=== PATIENT | male | born 1980 | race Caucasian/White ===

== ENCOUNTER 2022-04-20 11:12 | Emergency (ER) | payer OTHER, SELFPAY ==
[2022-04-20 11:42] VITALS: BP 157/89; PULSE 77; RESP 16; TEMP 36.3; O2SAT 100; BMI 36.3
--- NOTE | 2022-04-20 11:44 | ECG_ITS ---
Test Reason : electrocuted Blood Pressure : / mmHG Vent. Rate : 074 BPM Atrial Rate : 074 BPM P-R Int : 182 ms QRS Dur : 080 ms QT Int : 372 ms P-R-T Axes : 030 -18 012 degrees QTc Int : 412 ms Normal sinus rhythm Possible Anterior infarct , age undetermined Abnormal ECG When compared with ECG of 23-JUN-2004 07:00, No significant change was found Referred By: Generic ED Physician Electronically Signed By:MICHAEL ZAMORA
--- NOTE | 2022-04-20 12:13 | ED.GENADULT ---
HPI - General Adult General Chief complaint: General Medical Stated complaint: electrocuted, L hand pain/work inj Time Seen by Provider: 04/20/22 12:08 Source: patient Mode of arrival: ambulatory Limitations: no limitations History of Present Illness HPI narrative: Patient comes to the emergency room after being shocked while changing a light bulb. Patient states that he was working for [employer], changing a light bulb in a signed. Patient states that it hurt quite a bit, the shock traveled from his left hand to the left shoulder. Denies any burn injuries. Denies any loss of consciousness, no chest pain or shortness of breath. At this time, he feels that his 4th and 5th fingers at a bit tingly, no pain. Related Data Home Medications Medication Instructions Recorded Confirmed atorvastatin 20 mg tablet 20 mg PO DAILY 09/24/21 metformin 1,000 mg tablet 1,000 mg PO BID 09/24/21 Previous Rx's Medication Instructions Recorded amoxicillin 500 mg-potassium 1 tab PO BID #14 tabs 09/24/21 clavulanate 125 mg tablet (Augmentin) Allergies Allergy/AdvReac Type Severity Reaction Status Date / Time No Known Allergies Allergy Verified 04/20/22 11:42 Review of Systems Review of Systems: Constitutional : No Weight loss, No Fever, No Chills, No Night Sweats, No Fatigue, No Malaise ENT/Mouth : No Hearing loss, No Ear Pain, No Nasal Congestion, No Sinus Pain, No Hoarseness, No sore throat, No Rhinorrhea, No Swallowing Difficulty Eyes: No Eye Pain, No Swelling, No Redness, No Foreign Body, No Discharge, No Vision Changes Cardiovascular : No Chest Pain, No SOB, No Dyspnea on Exertion, No Orthopnea, No Edema, No Palpitations Respiratory : No Cough, No Sputum, No Wheezing, No Smoke Exposure, No Dyspnea Gastrointestinal : No Nausea, No Vomiting, No Diarrhea, No Constipation, No abdominal Pain, No Hematochezia, No Melena Genitourinary : no irregular bleeding, No Dysuria, No Urinary Frequency, No Hematuria, No Urinary Incontinence, No Urgency, No Flank Pain, No Urinary Flow Changes, No Hesitancy Musculoskeletal : Complaining of 4th and 5th finger tingling after being shocked by an electrical wire. No joint pain, No Myalgias, No Joint Swelling Skin : No Skin Lesions, No rash Neuro : No Weakness, No Numbness, No Paresthesias, No Loss of Consciousness, No Dizziness, No Headache Psych : No Anxiety/Panic, No Depression, No SI/HI/AH/VH, No Social Issues, Heme/Lymph: No Bruising, No Bleeding,No Lymphadenopathy Endocrine : No Polyuria, No Polydipsia, No Temperature Intolerance ON LICENSE OF [facility] Past Medical History Medical History Hypertension Social History Social History Patient Tobacco Use Status: Former Tobacco user Advance Directives: No Advance Directives Information Provided: Yes Physical Exam ED Vital Signs: Vital Signs - 24 hr 04/20/22 11:42 Temperature 97.4 F Pulse Rate 77 Respiratory Rate 16 Blood Pressure 157/89 H Pulse Oximetry 100 Oxygen Delivery Method Room Air BMI result Body Mass Index 36.3 Const Other: Appearance: Alert. Oriented X3. No acute distress. Well appearing Eyes: Pupils equal, round and reactive to light. ENT: Pharynx normal. Neck: Normal inspection. Neck supple. No lymph nodes noted. No crepitus CVS: Normal heart rate and rhythm. Pulses normal. Normal S1 and S2 Respiratory: No respiratory distress. Breath sounds normal. No Wheezing. No rales Abdomen: Soft and nontender. No rigidity. No distention. Skin: Skin warm and dry. Normal skin color. Normal skin turgor. Old scabs in the dorsum of the left hand. No burn [place] in the hand, no entry or exit wound Extremities: No lower extremity edema. No Lacerations. No Rash. Patient is able to flex and extend all fingers in both hands, strength 5/5 bilaterally, normal range of motion in both arms Neuro: Oriented X 3. No motor deficit. No sensory deficit. Moving all extremities. No slurred speech. CN 2 through 12 grossly intact Psych: calm, cooperative, normal affect Course Course Course Narrative: Patient's EKG is within normal limits. Troponin, CPK and other labs pending. At this time, other than the tingling in the 4th and 5th fingers of the left hand, patient has no other complaints. EKG within normal limits, CPK 647, creatinine 0.88. CPK elevation likely secondary from the shock. Not causing any renal dysfunction. Troponin negative. Patient has no chest pain, no shortness of breath. Patient ready for discharge. Medical Decision Making Lab Data Result diagrams: 04/20/22 12:52 04/20/22 12:52 Labs: Lab Results 04/20/22 04/20/22 04/20/22 Range/Units 12:52 12:52 12:52 WBC 7.0 (4.8-10.8) X10*3/uL RBC 3.95 L (4.60-5.80) X10*6/uL Hgb 13.0 L (14.0-18.0) g/dl Hct 38.0 L (42.0-52.0) % MCV 96.2 (80.0-98.0) fL MCH 32.9 (27.0-33.0) pg MCHC 34.2 (31.0-36.0) g/dl RDW 12.1 (11.0-16.0) % Plt Count 272 (160-400) X10*3/uL MPV 9.7 (9.4-12.4) fL Immature Gran % (Auto) 0.9 H (0.0-0.4) % Neut % (Auto) 54.5 (45-73) % Lymph % (Auto) 31.8 (20-40) % Terry % (Auto) 8.6 (2-11) % Eos % (Auto) 3.3 (0-4) % Baso % (Auto) 0.9 (0-2) % Lymph # (Auto) 2.2 (1.2-4.9) X10*3/uL Terry # (Auto) 0.6 (0.1-1.2) X10*3/uL Eos # (Auto) 0.2 (0.0-0.4) X10*3/uL Baso # (Auto) 0.1 (0.0-0.2) X10*3/uL Abs Immat Gran (auto) 0.06 H (0.00-0.03) X10*3/uL Absolute Neuts (auto) 3.8 (2.0-8.3) x10*3/uL Absolute Nucleated RBC 0.000 (0.0-0.012) X10*3/uL Nucleated RBC % (auto) 0.0 (0.0-0.2) /100WBC Sodium 137 (135-145) mmol/L Potassium 4.8 (3.3-5.1) mmol/L Chloride 101 (96-108) mmol/L Carbon Dioxide 24 (22-29) mmol/L Anion Gap 17 (12-20) BUN 8 L (9-16) mg/dL Creatinine 0.88 (0.5-1.4) mg/dL Estim Creat Clear Calc 122.3 Estimated GFR > 60 Random Glucose 132 H (60-115) mg/dL Calcium 9.4 (8.4-10.2) mg/dL Total Creatine Kinase 647 H (38-174) U/L Troponin I High Sens < 3.5 (<3.5-35.0) ng/L ECG Data Attestation: I personally reviewed and interpreted this ECG as follows: (Sinus rhythm, heart rate 74, no ST segment depressions or elevations, no T-wave inversions, QTC 412) Discharge Plan Discharge Clinical Impression: Electric shock Patient Disposition: Home, Self-Care Instructions: Electrical Zamudio in Adults (ED) Additional Instructions: Please follow-up with your primary care physician tomorrow. If you have any worsening or new symptoms, please return to the emergency room or call 911 Prescriptions: No Action metformin 1,000 mg tablet 1,000 mg PO BID atorvastatin 20 mg tablet 20 mg PO DAILY amoxicillin-pot clavulanate [Augmentin] 500-125 mg tablet 1 tab PO BID Qty: 14 0RF
[2022-04-20 13:02] LABS: MANUAL DIFF FLAG NO
[2022-04-20 13:04] LABS: Basophils Absolute Auto 0.1 X10*3/uL (0.0-0.2); Basophils Percent Auto 0.9 % (0-2); Eosinophils Absolute Auto 0.2 X10*3/uL (0.0-0.4); Eosinophils Percent Auto 3.3 % (0-4); Imm Gran Abs Auto 0.06 X10*3/uL (0.00-0.03); Imm Gran Pct Auto 0.9 % (0.0-0.4); Lymphocytes Absolute Auto 2.2 X10*3/uL (1.2-4.9); Lymphocytes Percent Auto 31.8 % (20-40); Mean Corpuscular HGB Conc 34.2 g/dl (31.0-36.0); Mean Corpuscular Hemoglobin 32.9 pg (27.0-33.0); Mean Corpuscular Volume 96.2 fL (80.0-98.0); Mean Platelet Volume 9.7 fL (9.4-12.4); Monocytes Absolute Auto 0.6 X10*3/uL (0.1-1.2); Monocytes Percent Auto 8.6 % (2-11); Neutrophils Absolute Auto 3.8 x10*3/uL (2.0-8.3); Neutrophils Percent Auto 54.5 % (45-73); Platelet Count 272 X10*3/uL (160-400); Red Blood Count 3.95 X10*6/uL (4.60-5.80); Red Cell Distribution Width 12.1 % (11.0-16.0)
[2022-04-20 13:19] LABS: Anion Gap 17 (12-20); Blood Urea Nitrogen 8 mg/dL (9-16); Calcium 9.4 mg/dL (8.4-10.2); Carbon Dioxide 24 mmol/L (22-29); Chloride 101 mmol/L (96-108); Creatinine Clr Calc Pharmacy 122.3; Estimated Glomerular Filt Rate > 60; Glucose Random 132 mg/dL (60-115); Potassium 4.8 mmol/L (3.3-5.1); Sodium 137 mmol/L (135-145)
[2022-04-20 13:27] LABS: Troponin-I High Sensitivity < 3.5 ng/L (<3.5-35.0)
--- NOTE | 2022-04-20 18:42 | PC.NURSE ---
LATE ENTRY 1400 PT AWAKE, ALERT AND ORIENTED X 3. SKIN WARM AND DRY. RESP UNLABORED. DENIES N/V. DENIES CP/SOB. PT SITTING UP ON STRETCHER. NO COMPLAINTS. NO ACUTE DISTRESS NOTED.
== END 2022-04-20 14:15 | disposition home or self-care (01) ==
PROVIDERS: Emergency Provider Emergency Medicine
DX: T75.4XXA Electrocution, initial encounter (principal); W86.8XXA Exposure to other electric current, initial encounter; Y93.89 Activity, other specified; Y92.213 High school as the place of occurrence of the external cause; Y99.0 Civilian activity done for income or pay
CPT/HCPCS: 36415; 80048; 82550; 84484; 85025; 93005; 99283

== ENCOUNTER 2023-09-06 08:08 | Outpatient (AMB) | payer OTHER, SELFPAY ==
[2023-09-06 08:15] VITALS: BP 130/80; PULSE 95; TEMP 37.1; O2SAT 98; BMI 35.5
--- NOTE | 2023-09-06 08:15 | MHC.OFFWIV ---
Intake Vital Signs 09/06/23 08:15 Height 5 ft 6 in Weight 220 lb BMI 35.5 BP 130/80 Blood Pressure Location Rt brachial Position Sitting Pulse 95 Pulse Source Pulse Oximeter Temp 98.8 F Temp Source Oral Pulse Oximetry (%) 98 Oxygen Delivery Method Room Air Intake Visit Reasons: EP strep throat pain from child Intake Note: pt is here for c/o possible strep, pts child was positive for strep and patient has sore throat Patient Tobacco Use Status: Former Tobacco user Allergies No Known Allergies Allergy (Verified 09/06/23 08:27) Medication List - Last Reconciled 09/06/23 by Ricky Be MD atorvastatin 20 mg PO DAILY diazepam 5 mg PO DAILY PRN diclofenac sodium 75 mg PO BID glipizide 5 mg PO DAILY lancets (FreeStyle Lancets) As directed lisinopril 10 mg PO DAILY metformin 1,000 mg PO BID methocarbamol 750 mg PO TID Do you need a note to return to daycare/school/sports/work: Yes HPI EP strep throat pain from child HPI Details Patient presents for a sick visit. Reporting symptoms of sinus congestion, sore throat and difficulty swallowing. Low-grade fever. 6-year-old daughter was recently diagnosed with strep. She is currently on amoxicillin. [facility] Medical History Hypertension Social History Patient Tobacco Use Status: Former Tobacco user Physical Exam Vital Signs: Last Vital Signs Temp 98.8 F 09/06/23 08:15 Pulse 95 09/06/23 08:15 BP 130/80 09/06/23 08:15 Pulse Ox 98 09/06/23 08:15 Oxygen Delivery Method Room Air 09/06/23 08:15 BMI result Body Mass Index 35.5 Const General: cooperative and healthy appearing Nutritional Appearance: well nourished Orientation/consciousness: patient oriented x3 Limitations: no limitations HEENT Head: Yes normal to inspection Eyes General: appearance normal, both eyes and all related structures Neck Neck: Yes normal visual inspection Chest Chest palpation & inspection: normal palpation of entire chest wall Resp Effort & Inspection: normal respiratory effort Neuro General: patient oriented x3 Assessment & Plan Assessment & Plan (1) Upper respiratory tract infection: Code(s): J06.9 - Acute upper respiratory infection, unspecified Plan: Antibiotics ordered. Increase fluid intake. Tylenol for aches and pains. If symptoms worsen, follow-up here for a recheck. Coding Level of Care Code Est Pt Level 3 (61804) Diagnoses Upper respiratory tract infection J06.9
== END 2023-09-06 08:28 | disposition home or self-care (01) ==
PROVIDERS: PCP Internal Medicine; Visit Provider Internal Medicine
DX: J06.9 Acute upper respiratory infection, unspecified (principal); J02.9 Acute pharyngitis, unspecified
CPT/HCPCS: 87880; 99213

== ENCOUNTER 2023-12-19 12:42 | Outpatient (AMB) | payer OTHER, SELFPAY ==
[2023-12-19 12:45] VITALS: BP 130/90; PULSE 86; TEMP 36.2; O2SAT 96; BMI 37.3
--- NOTE | 2023-12-19 12:45 | AM.OFFWIN_ITS ---
Intake Vital Signs 12/19/23 12:45 Height 5 ft 6 in Weight 231 lb BMI 37.3 BP 130/90 H Blood Pressure Location Lt brachial Position Sitting Pulse 86 Pulse Source Pulse Oximeter Temp 97.1 F Temp Source Temporal Artery Scan Pulse Oximetry (%) 96 Oxygen Delivery Method Room Air Intake Visit Reasons: EST/sore throat, right ear pain (lobby masked) Intake Note: pt is here today for sore throat rt ear pain started 1 week ago Patient Tobacco Use Status: Former Tobacco user Allergies No Known Allergies Allergy (Verified 12/19/23 12:48) Do you need a note to return to daycare/school/sports/work: Yes HPI HPI Comments History of Present Illness Details 43-year-old male presents today complain ing of sore throat does not last 3 or 4 days. States his kids have had 2 episodes of strep 1 last week in 1 2 weeks ago. Patient denies any other symptoms of cough shortness of breath chest pain congestion PFSH Medical History Hypertension Social History Patient Tobacco Use Status: Former Tobacco user Review of Systems Const All systems reviewed & are unremarkable except as noted in HPI and below Physical Exam Vital Signs: Last Vital Signs Temp 97.1 F 12/19/23 12:45 Pulse 86 12/19/23 12:45 BP 130/90 H 12/19/23 12:45 Pulse Ox 96 12/19/23 12:45 Oxygen Delivery Method Room Air 12/19/23 12:45 BMI result Body Mass Index 37.3 HEENT Head: Yes normal to inspection, Yes normocephalic and Yes atraumatic Ears: hearing grossly normal bilaterally, TM's normal bilaterally and EAC's normal General nose exam: Normal external nose present Face and sinus: Yes normal facial exam Throat: Yes posterior oropharynx abnormal (Erythema) Resp Effort & Inspection: normal respiratory effort Auscultation: clear to auscultation bilaterally Cardio Rate: regular rate Rhythm: regular rhythm Results AMB Rapid Strep AMB Rapid Strep Negative Last Edit by Tyshawn Noriega MA on 12/19/23 12:56 Results Reviewed Results Reviewed: Laboratory Last Values Strep Scn [facility] Negative 12/19/23 12:56 Although his rapid strep was negative his exudative pharyngitis needs to be treated Assessment & Plan Assessment & Plan (1) Exudative pharyngitis: Code(s): J02.9 - Acute pharyngitis, unspecified Plan: Antibiotics been ordered and the patient was given a note for work Plan See plan Medications: New amoxicillin-pot clavulanate 500-125 mg (Augmentin) 1 tab PO BID 10 days 20 tabs 0RF Coding Level of Care Code Est Pt Level 3 (20815) Diagnoses Exudative pharyngitis J02.9
== END 2023-12-19 13:31 | disposition home or self-care (01) ==
PROVIDERS: PCP Nurse Practitioner Family; Visit Provider Physician Assistant Medical
DX: J02.9 Acute pharyngitis, unspecified (principal)
CPT/HCPCS: 87880; 99213

== ENCOUNTER 2024-03-29 10:28 | Outpatient (AMB) | payer OTHER, SELFPAY ==
--- NOTE | 2024-03-29 10:30 | MHC.OFFWIV ---
Intake Vital Signs 03/29/24 10:32 Height 5 ft 6 in Weight 228 lb BMI 36.8 BP 152/96 H Blood Pressure Location Lt brachial Position Sitting Pulse 77 Pulse Source Pulse Oximeter Temp 98.0 F Temp Source Oral Pulse Oximetry (%) 98 Oxygen Delivery Method Room Air Intake Visit Reasons: EP- Bloody stool, abdomen soreness Intake Note: pt c/o abdominal pain and blood in stool since Monday. BP elevated. Has not had meds in 2 days Patient Tobacco Use Status: Former Tobacco user Allergies No Known Allergies Allergy (Verified 03/29/24 10:31) Do you need a note to return to daycare/school/sports/work: No HPI EP- Bloody stool, abdomen soreness HPI Details This is a 43 year old male patient who presents to the [place] clinic today with report of blood in stool since this past Monday. He states he noticed some red blood in stool several days ago, and it has lessened over the last few days. He also reports some mild upper right/mid abdominal pain which started today. He has had some gallbladder flares in the past and there has been consideration for cholecystectomy, however this has not been done. He denies any rectal pain, lower abdominal pain, fever, chills, weakness, vomiting. Denies urinary symptoms. Reports some soft stool. No constipation. Has appt. to establish care with new PCP Hai Mora on 04/25. BP somewhat elevated today - patient reports he refilled BP meds today after being off of them for two days. [facility] Medical History Hypertension Social History Patient Tobacco Use Status: Former Tobacco user Review of Systems Const All systems reviewed & are unremarkable except as noted in HPI and below Physical Exam Vital Signs: Last Vital Signs Temp 98.0 F 03/29/24 10:32 Pulse 77 03/29/24 10:32 BP 152/96 H 03/29/24 10:32 Pulse Ox 98 03/29/24 10:32 Oxygen Delivery Method Room Air 03/29/24 10:32 BMI result Body Mass Index 36.8 Const General: cooperative, healthy appearing, comfortable and no acute distress Nutritional Appearance: overweight Limitations: no limitations HEENT Head: Yes normal to inspection Ears: hearing grossly normal bilaterally Resp Effort & Inspection: normal respiratory effort Auscultation: clear to auscultation bilaterally GI Inspection: Yes normal to inspection Palpation (GI): Soft to palpation, Tenderness to palpation present (GI) in the epigastrum (mild ttp right/mid epigastric, no rebound tenderness, no guarding) and No hepatosplenomegaly present Percussion: Yes normal to percussion Auscultation: Hypoactive bowel sounds present General: Yes no CVA tenderness Back/Spine/Pelvis Back: no CVA tenderness Skin General skin exam: no rashes or lesions noted Extrem General: Yes capillary refill normal and Yes no clubbing, cyanosis or edema Psych Appearance: grossly normal Mental Status: mental status grossly normal Speech and movement: Normal speech and movement present Assessment & Plan Assessment & Plan (1) Epigastric abdominal tenderness: Code(s): R10.816 - Epigastric abdominal tenderness Qualifiers: Presence of rebound: absent Qualified Code(s): R10.816 - Epigastric abdominal tenderness Plan: Patient has mild right upper epigastric tenderness on palpation. He has had some gallbladder issues in the past for which he has seen GI while at [place]. There was consideration of cholecystectomy however patient never ended up having this done. No nausea, vomiting, fever. He has been eating a healthy diet - no recent greasy/fatty foods. He has also noticed some red blood in his stool since Monday (5 days). No lower abdominal or rectal pain. He could possibly have internal hemorrhoids. I discussed possible management/workup of symptoms with patient. He does not want ED eval for imaging/workup and would like to hold off on any labs at this time. We discussed red flags for which he should not delay care, including development of fever, chills, weakness/fatigue, dizziness, increase in blood in stool or abdominal pain, vomiting. He states that he will go to ED for any concerning symptoms, and will return to [place] next week if he does not improve with time. He has appt. to establish care with PCP Hai Mora next month. He may need GI referral if any of this is ongoing. All questions were answered and patient agrees. (2) Bloody stool: Code(s): K92.1 - Melena Plan: As above Coding Level of Care Code Est Pt Level 4 (42857) Diagnoses Epigastric abdominal tenderness without rebound tenderness R10.816 Presence of rebound: absent Bloody stool K92.1
[2024-03-29 10:32] VITALS: BP 152/96; PULSE 77; TEMP 36.7; O2SAT 98; BMI 36.8
== END 2024-03-29 11:20 | disposition home or self-care (01) ==
PROVIDERS: PCP Internal Medicine; Visit Provider Nurse Practitioner Family
DX: R10.816 Epigastric abdominal tenderness (principal); K92.1 Melena
CPT/HCPCS: 99214

== ENCOUNTER 2024-04-01 12:18 | Outpatient (REF) | payer OTHER, SELFPAY ==
[2024-04-01 13:23] VITALS: BP 183/118; PULSE 63; RESP 16; TEMP 37; O2SAT 98
== END 2024-04-01 12:19 | disposition home or self-care (01) ==
LOC: HO.MS 12:18
PROVIDERS: PCP Internal Medicine; Visit Provider Ophthalmology
PROC: (CPT 66821; principal; 2024-04-01 13:30)
DX: H26.491 Other secondary cataract, right eye (principal)
CPT/HCPCS: 66821

== ENCOUNTER 2024-04-22 12:36 | Outpatient (REF) | payer OTHER, SELFPAY ==
[2024-04-22 14:24] VITALS: BP 149/90; PULSE 79; RESP 16; TEMP 36.6; O2SAT 98; BMI 36.5
== END 2024-04-22 12:37 | disposition home or self-care (01) ==
LOC: HO.MS 12:36
PROVIDERS: PCP Internal Medicine; Visit Provider Ophthalmology
PROC: (CPT 66821; principal; 2024-04-22 15:10)
DX: H26.492 Other secondary cataract, left eye (principal)
CPT/HCPCS: 66821

== ENCOUNTER 2024-04-25 14:35 | Outpatient (AMB) | payer OTHER, SELFPAY ==
[2024-04-25 14:36] VITALS: BP 140/90; PULSE 82; O2SAT 98; BMI 37.3
--- NOTE | 2024-04-25 14:36 | MHC.PC.OV ---
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 Accompanied by: Self / Same As Patient Allergies No Known Allergies Allergy (Verified 04/25/24 16:41) Medication List - Last Reconciled 04/25/24 by BECK Aparicio atorvastatin 20 mg PO DAILY diazepam 5 mg PO DAILY PRN diclofenac sodium 75 mg PO BID glipizide 5 mg PO DAILY lancets (FreeStyle Lancets) As directed lisinopril 10 mg PO DAILY metformin 1,000 mg PO DAILY metformin 500 mg PO BEDTIME Tobacco use date assessed: 04/25/24 Dental Screening Dental Screen Date: 04/25/24 Did you have a dental visit in the last 12 months?: Yes Did you have a dental problem in the last 6 months where you did not have access to dental care?: No Was dental information given to patient?: Patient has dentist 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 Due for colon screen, will refer to GI. Pt is a diabetic, on an SAL and a statin. Pt reports that his last A1C was 6.7 on 02/05. Due for microalbumin, will order. Denies polyuria, polydipsia, and neuropathy. Pt denies any signs and symptoms of hypoglycemia and does know how to correct it. Pt reports that metformin causes GI distress. Will decrease this from 1000mg in the morning and 500mg at night to 500mg bid. Will start jardiance 10mg. Pt will contact me in 1-1.5 months with how he is doing on this med. May consider decreasing more, and increasing jardiance PFSH Medical History Hypertension Surgical History H/O elbow surgery S/P ACL repair History of surgery on lower extremity Hx of eye surgery Family History Father No problems noted. Mother No problems noted. Social History Housing: House Alcohol intake: current Alcohol intake frequency: 3 or more drinks per day Alcohol type: beer Patient Tobacco Use Status: Former Tobacco user e-Cigarette/Vaping Use: Never Used service: No Current occupational status: employed Current occupation: [employer] Current occupational exposures/hazards: No Cognitive needs: No Hearing needs: No Vision needs: Yes Questionnaire PHQ-9 Over the last 2 weeks, how often have you been bothered by any of the following problems? 1. Little interest or pleasure in doing things: not at all 2. Feeling down, depressed, or hopeless: not at all 3. Trouble falling or staying asleep, or sleeping too much: not at all 4. Feeling tired or having little energy: not at all 5. Poor appetite or overeating: not at all 6. Feeling bad about yourself - or that you are a failure or have let yourself or your family down: not at all 7. Trouble concentrating on things, such as reading the newspaper or watching television: not at all 8. Moving or speaking so slowly that other people could have noticed. Or the opposite - being so fidgety or restless that you have been moving around a lot more than usual: not at all 9. Thoughts that you would be better off or of hurting yourself in some way: not at all Total score: 0 Depression Screening Interpretation: Negative Depression Screening Done: Yes 83205 - PHQ-9 Billing: Yes Source: Developed by Drs. Zeb Scott, Nikole Hope, Kin Pressley and colleagues, with an educational elsie from [employer]. Thrive Questionnaire Date Thrive assessed: 04/25/24 I am a: Patient What is your living situation today?: I have a steady place to live Within the past 12 months, did the food you bought not last and you didn't have the money to get more?: Never true Within the past 12 months, did you worry whether your food would run out before you got money to buy more?: Never true Do you have trouble paying for medicines?: No Do you have trouble getting transportation to medical appointments?: No Do you have trouble paying your heating and electricity bill?: No Do you have trouble taking care of your child, family member or friend?: No Do you have trouble with day-to-day activities such as bathing, preparing meals, shopping, managing finances, etc.?: No Are you currently unemployed and looking for a job?: No Are you interested in more education?: No Please select the resources that you would like help with: None Currently or been in a relationship where the following occur: No concerns reported THRIVE Score: 0 AUDIT C Alcohol Use Questionnaire (AUDIT-C) 1. How often do you have a drink containing alcohol?: 4 or more times a week 2. How many drinks containing alcohol do you have on a typical day when you are drinking?: 3 or 4 3. How often do you have six or more drinks on one occasion?: Daily or almost daily Total Score: 9 Score Reviewed/Action Taken: Yes DIDIER-7 AMB Questionnaire DIDIER-7 Date DIDIER - 7 assessed: 04/25/24 Feeling nervous, anxious, or on edge: 0 = Not at all Not being able to stop or control worryin = Not at all Worrying too much about different things: 0 = Not at all Trouble relaxin = Not at all Being so restless that it is hard to sit still: 0 = Not at all Becoming easily annoyed or irritable: 0 = Not at all Feeling afraid as if something awful might happen: 0 = Not at all Total DIDIER-7 score (0-4 normal; 5-9 mild; 10-14 moderate; 15-21 severe): 0 Source: Developed by Drs. Zeb Scott, Nikole Hope, Kin Prsesley and colleagues, with an educational elsie from [employer]. DIDIER-7 Assessment Billing DIDIER-7 Assessment Tool: DIDIER-7 Assessment 28400 Review of Systems Const Reports as per HPI Physical exam (Primary Care) Vital Signs: Last Vital Signs Pulse 82 04/25/24 14:36 BP 140/90 H 04/25/24 14:36 Pulse Ox 98 04/25/24 14:36 BMI result Body Mass Index 37.3 Tobacco/Smoking Status: Tobacco use Status Tobacco use date assessed 04/25/24 04/25/24 14:39 Patient Tobacco Use Status Former Tobacco user 04/25/24 14:46 e-Cigarette/Vaping Use Never Used 04/25/24 14:46 PHQ-9: PHQ-9 Score PHQ-9: Total score 0 04/25/24 15:00 Depression Screening Interpretation: Negative Thrive Assessment: Date of Thrive Assessment Date Thrive assessed 04/25/24 04/25/24 14:48 Currently or been in a relationship where the following occur: No concerns reported Const General: cooperative Nutritional Appearance: obese Orientation/consciousness: patient oriented x3 Resp Effort & Inspection: normal respiratory effort Auscultation: clear to auscultation bilaterally Cardio Rate: regular rate Rhythm: regular rhythm Heart sounds: S1 normal heart sound present and S2 normal heart sound present Neuro General: patient oriented x3 Extrem Other: bilat feet: + sensation with use of monofilament, feet intact Psych Appearance: grossly normal Mental Status: mental status grossly normal Speech and movement: Normal speech and movement present Affect: normal affect Attitude: cooperative Thought process: Normal thought process present Thought content: Normal thought content present Insight: Good insight present (Psych) Judgement: Good judgement present (Psych) Assessment and Plan Assessment & Plan (1) Diabetes: Code(s): E11.9 - Type 2 diabetes mellitus without complications Plan: Labs ordered, decreasing metformin to 500mg bid, starting jardiance 10mg, pt will contact me in 1-1.5 months with no he is doing on this med (2) Screening for colon cancer: Code(s): Z12.11 - Encounter for screening for malignant neoplasm of colon Plan: Referred to GI Plan The patient agreed to the use of a esthetician and manager medical spa for this encounter. Scribed for BECK Robles by Kadi Sullivan esthetician and manager medical spa, on 04/25/2024 at 15:05 EST. Orders: Orders Complete Blood Count Auto Diff Today E11.9 - Type 2 diabetes mellitus without complications Hemoglobin A1c Today E11.9 - Type 2 diabetes mellitus without complications Microalbumin, Random (w Creat) Today E11.9 - Type 2 diabetes mellitus without complications Comprehensive [place]. Panel Fast Today E11.9 - Type 2 diabetes mellitus without complications TSH reflex Free T4 Today E11.9 - Type 2 diabetes mellitus without complications UA CC w/rflx Micro + Cult Today E11.9 - Type 2 diabetes mellitus without complications Lipid Panel Today E11.9 - Type 2 diabetes mellitus without complications Referrals Gastroenterology Referral Z12.11 - Encounter for screening for malignant neoplasm of colon Medications: New empagliflozin (Jardiance) 10 mg PO DAILY 30 tabs 2RF 30 days Coding Level of Care Code Est Pt Level 3 (33527) Diagnoses Diabetes E11.9 Screening for colon cancer Z12.11 Additional Codes DIDIER-7 Assessment Billing - DIDIER-7 Assessment Tool: DIDIER-7 Assessment 27850 ([id number])
[2024-04-25 15:27] VITALS: BP 122/80
== END 2024-04-25 16:04 | disposition home or self-care (01) ==
PROVIDERS: PCP Nurse Practitioner Family; Visit Provider Nurse Practitioner Family
DX: E11.9 Type 2 diabetes mellitus without complications (principal); Z12.11 Encounter for screening for malignant neoplasm of colon
CPT/HCPCS: 99213

== ENCOUNTER 2024-07-15 08:11 | Outpatient (AMB) | payer OTHER, SELFPAY ==
--- NOTE | 2024-07-15 08:21 | A.OFFPC_ITS ---
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 The symptoms began approximately one and a half to two months ago. The patient describes a steady, dull pain in the left lower lumbar region, which occasionally intensifies into a sharp or pinching sensation. The numbness extends to the entire left leg, including the toes. There is no reported history of bowel or bladder incontinence. The patient reports that sitting for long periods exacerbates the symptoms, while standing provides some relief. He denies any direct traumatic events preceding the exacerbation of his symptoms but recalls similar episodes in the past that resolved over a shorter duration. A prior assessment did not yield conclusive findings, and no recent imaging has been performed. He did reports Physical therapy made it worse previously, and XR did not show much. NSAIDS do help with some of the discomfort. The patient also discusses his recent cessation of metformin use and experiences improved general well-being, although his blood glucose levels have been slightly elevated during the night. His diabetes management currently includes Jardiance, and a recent hemoglobin A1c was recorded at 6.3%, representing significant improvement. Social History Review of Systems Physical Exam - Neurological- Positive patellar reflex es bilaterally; positive left lower extremity straight leg test. - Musculoskeletal- Notable increase in l eft lower back pain without radiculopathy upon palpation. -s1 s2, no murmur clear lungs bilat -feet intact, + sensation with monofilam ent. -A+Ox3 Results Plan - Diabetes Mellitus Type 2: Continue Jar diance due to its positive impact on renal and cardiac protection and its effectiveness in the current treatment plan. Discontinue metformin as agreed due to adverse gastrointestinal effects. - Lower Back Pain with Left Leg Numbness : Plan for lumbar spine MRI next week to evaluate structural causes. Consideration for further imaging or referral to a specialist will depend on results. Advise on activity modifications to assist with symptom management, emphasizing tolerable activities while avoiding prolonged sitting. Encouraged pt to get labs drawn. Patient was informed and verbally consented to the use of an ambient scribe for clinic note documentation during this visit. Discussion Notes We discussed the discontinuation of metformin due to significant gastrointestinal side effects, which led to improved sleep and overall digestive health. I endorsed the continued use of Jardiance, with benefits including renal and cardiac protection. The patient's lifestyle adjustments, particularly an increase in A1c control, were acknowledged. For the lower back pain, we deliberated on performing lumbar spine imaging. Standing, given the exacerbation of pain when sitting and some relief when standing. I provided reassurance regarding the absence of concerning neurologic findings and encouraged the patient?s proactive measures in health management. Patient Instructions - Continue current regimen of Jardiance for diabetes management. - Discontinue metformin. - Avoid prolonged sitting; engage in yara erable physical activities. - MRI ordered, continue NSAIDs (ONLY PRN ) - Monitor blood glucose levels, particul lita nighttime trends. - Seek medical attention if symptoms sig nificantly worsen or new symptoms develop. [facility] Medical History Hypertension Surgical History H/O elbow surgery S/P ACL repair History of surgery on lower extremity Hx of eye surgery Family History Father No problems noted. Mother No problems noted. 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 - [employer] Current occupational exposures/hazards: No Cognitive needs: No Hearing needs: No Vision needs: Yes Questionnaire Thrive Questionnaire Date Thrive assessed: 04/25/24 I am a: Patient What is your living situation today?: I have a steady place to live Within the past 12 months, did the food you bought not last and you didn't have the money to get more?: Never true Within the past 12 months, did you worry whether your food would run out before you got money to buy more?: Never true Do you have trouble paying for medicines?: No Do you have trouble getting transportation to medical appointments?: No Do you have trouble paying your heating and electricity bill?: No Do you have trouble taking care of your child, family member or friend?: No Do you have trouble with day-to-day activities such as bathing, preparing meals, shopping, managing finances, etc.?: No Are you currently unemployed and looking for a job?: No Are you interested in more education?: No Please select the resources that you would like help with: None Currently or been in a relationship where the following occur: No concerns reported THRIVE Score: 0 DIDIER-7 AMB Questionnaire DIDIER-7 Date DIDIER - 7 assessed: 04/25/24 Source: Developed by Drs. Zeb Scott, Nikole Hope, Kin Pressley and colleagues, with an educational elsie from [employer]. Physical exam (Primary Care) Vital Signs: Last Vital Signs Pulse 89 07/15/24 08:22 BP 132/80 07/15/24 08:22 Pulse Ox 98 07/15/24 08:22 BMI result Body Mass Index 36.8 Tobacco/Smoking Status: Tobacco use Status Tobacco use date assessed 04/25/24 07/15/24 08:25 Patient Tobacco Use Status Former Tobacco user 07/15/24 08:25 e-Cigarette/Vaping Use Never Used 07/15/24 08:25 Thrive Assessment: Date of Thrive Assessment Date Thrive assessed 04/25/24 07/15/24 08:25 Currently or been in a relationship where the following occur: No concerns reported Results AMB Hemoglobin A1c AMB Hemoglobin A1c 6.3 % Last Edit by Rafa Batista CMA on 07/15/24 08: 38 Results Reviewed Results Reviewed: Laboratory Last Values Hgb A1c (Clinic) 6.3 % (4.0-6.0) H 07/15/24 08:35 Coding Level of Care Code Est Pt Level 3 (76130) Diagnoses Pain of back and lower extremity M54.9; M79.609 Diabetes E11.9 Assessment & Plan Assessment & Plan (1) Pain of back and lower extremity: Code(s): M54.9 - Dorsalgia, unspecified; M79.609 - Pain in unspecified limb Category: Medical (2) Diabetes: Code(s): E11.9 - Type 2 diabetes mellitus without complications Category: Medical Plan . Orders: Orders AMB Hemoglobin A1c Today Z13.9 - Encounter for screening, unspecified MR lumbar spine wo con Today M54.9 - Dorsalgia, unspecified, M79.609 - Pain in unspecified limb
[2024-07-15 08:22] VITALS: BP 132/80; PULSE 89; O2SAT 98; BMI 36.8
== END 2024-07-15 09:28 | disposition home or self-care (01) ==
PROVIDERS: PCP Nurse Practitioner Family; Visit Provider Nurse Practitioner Family
DX: M54.9 Dorsalgia, unspecified (principal); M79.609 Pain in unspecified limb; E11.9 Type 2 diabetes mellitus without complications; Z13.9 Encounter for screening, unspecified

== ENCOUNTER → 2024-07-15 08:11 | Outpatient (BNVA) | payer OTHER, SELFPAY | PROVIDERS: PCP Nurse Practitioner Family; Visit Provider Nurse Practitioner Family | DX: M54.9 Dorsalgia, unspecified (principal); M79.605 Pain in left leg; E11.9 Type 2 diabetes mellitus without complications | CPT/HCPCS: 83036 ==

== ENCOUNTER 2024-07-27 06:46 | Outpatient (REF) | payer OTHER, SELFPAY ==
[2024-07-27 11:12] LABS: MANUAL DIFF FLAG NO
[2024-07-27 11:17] LABS: Basophils Absolute Auto 0.1 X10*3/uL (0.0-0.2); Basophils Percent Auto 1.3 % (0-2); Eosinophils Absolute Auto 0.4 X10*3/uL (0.0-0.4); Eosinophils Percent Auto 4.6 % (0-4); Hematocrit 41.6 % (42.0-52.0); Hemoglobin 14.4 g/dl (14.0-18.0); Imm Gran Abs Auto 0.06 X10*3/uL (0.00-0.03); Imm Gran Pct Auto 0.8 % (0.0-0.4); Lymphocytes Absolute Auto 2.5 X10*3/uL (1.2-4.9); Lymphocytes Percent Auto 31.9 % (20-40); Mean Corpuscular HGB Conc 34.6 g/dl (31.0-36.0); Mean Corpuscular Hemoglobin 33.3 pg (27.0-33.0); Mean Corpuscular Volume 96.1 fL (80.0-98.0); Mean Platelet Volume 10.3 fL (9.4-12.4); Monocytes Absolute Auto 0.8 X10*3/uL (0.1-1.2); Monocytes Percent Auto 9.6 % (2-11); Neutrophils Absolute Auto 4.1 x10*3/uL (2.0-8.3); Neutrophils Percent Auto 51.8 % (45-73); Platelet Count 262 X10*3/uL (160-400); Red Blood Count 4.33 X10*6/uL (4.60-5.80); Red Cell Distribution Width 11.7 % (11.0-16.0); White Blood Count 7.9 X10*3/uL (4.8-10.8)
[2024-07-27 11:31] LABS: Appearance Urine Clear; Color Urine Yellow; Glucose Urine UA >=1000 mg/dL (Negative); Leukocyte Esterase Urine Negative (Negative); Nitrite Urine Negative (Negative); PH 5.5 (5.0-9.0); Specific Gravity - Urine 1.025 (1.005-1.025); UMIC TRIGGER UACC YES; Urine Blood Negative (Negative); Urine Ketones Negative (Negative); Urine Protein Negative (Neg-Trace)
[2024-07-27 11:37] LABS: Bacteria Urine None Seen (None Seen); Hyaline Casts Urine 0-2 /LPF (0-2); RBC Urine 0-2 /HPF (0-2); Squamous Epithelial Cell Urine 0-2 /HPF (0-2); WBC Urine 0-5 /HPF (0-5)
[2024-07-27 12:09] LABS: Alanine Aminotransferase 38 U/L (0-40); Albumin Level 4.5 g/dL (3.5-5.0); Alkaline Phosphatase 75 U/L (39-117); Anion Gap 14 (12-20); Aspartate Amino Transferase 31 U/L (5-37); Bilirubin Total 0.5 mg/dL (0.0-1.0); Blood Urea Nitrogen 14 mg/dL (9-16); Calcium 8.9 mg/dL (8.4-10.2); Carbon Dioxide 23 mmol/L (22-29); Chloride 104 mmol/L (96-108); Cholesterol 138 mg/dL (<200); Estimated Glomerular Filt Rate > 60; Glucose Fasting 161 mg/dL (60-99); HDL Cholesterol 44 mg/dL (>40); LDL Cholesterol Calculated 55 mg/dL (<100); Potassium 4.2 mmol/L (3.3-5.1); Sodium 137 mmol/L (135-145); TSH reflex Free T4 1.42 uIU/mL (0.32-4.0); Total Protein 7.8 g/dL (6.5-8.0); Triglycerides 199 mg/dL (<150)
[2024-07-27 12:25] LABS: Creatinine Urine 43.57 mg/dL; Microalbum/Creatinine Ratio Ur 146.8 ug/mg cr (<30)
== END 2024-07-27 06:47 | disposition home or self-care (01) ==
LOC: HO.HMGCLDS 06:46
PROVIDERS: PCP Nurse Practitioner Family; Visit Provider Nurse Practitioner Family
DX: E11.9 Type 2 diabetes mellitus without complications (principal)
CPT/HCPCS: 36415; 80053; 80061; 81001; 82043; 82570; 84443; 85025

== ENCOUNTER 2024-08-20 14:49 | Outpatient (REF) | payer OTHER, SELFPAY ==
--- NOTE | ~2024-08-20 | XR_ITS ---
CLINICAL HISTORY: M54.9 - Dorsalgia, unspecified 3 views lumbar spine Comparison: None Findings: Normal alignment. No acute fractures or dislocation. L4-L5 degenerative disc and multiple level degenerative facet, change. IMPRESSION: No acute findings. This document has been electronically signed by: Uday Paulino MD on 08/22/2024 19:01:56
== END 2024-08-20 14:50 | disposition home or self-care (01) ==
LOC: HO.XRAY 14:49
PROVIDERS: PCP Nurse Practitioner Family; Visit Provider Nurse Practitioner Family
DX: M54.9 Dorsalgia, unspecified (principal)
CPT/HCPCS: 72100

== ENCOUNTER → 2024-08-20 14:53 | Outpatient (BNV) | payer OTHER, SELFPAY | PROVIDERS: PCP Nurse Practitioner Family; Visit Provider Specialist | DX: M54.9 Dorsalgia, unspecified (principal) | CPT/HCPCS: 72100 ==

== ENCOUNTER 2024-09-17 09:01 | Outpatient (AMB) | payer OTHER, SELFPAY ==
[2024-09-17 09:07] VITALS: BP 120/80; PULSE 90; RESP 16; TEMP 36.6; O2SAT 98; BMI 36.8
--- NOTE | 2024-09-17 09:07 | A.OFFPC_ITS ---
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 Accompanied by: Self / Same As Patient Allergies No Known Allergies Allergy (Verified 09/17/24 09:53) Medication List - Last Reconciled 09/17/24 by LINDA Aparicio- atorvastatin 20 mg PO DAILY diclofenac sodium 75 mg PO BID PRN 30 days glipizide 5 mg PO DAILY Jardiance (empagliflozin) 25 mg PO DAILY NS lancets (FreeStyle Lancets) As directed lisinopril 10 mg PO DAILY Tobacco use date assessed: 09/17/24 Dental Screening Dental Screen Date: 09/17/24 Did you have a dental visit in the last 12 months?: Yes Did you have a dental problem in the last 6 months where you did not have access to dental care?: No Was dental information given to patient?: Patient has dentist HPI rescheduled DM ayla/overdue HPI Details Chief Complaint Follow-up for Type 2 Diabetes Mellitus. History of Present Illness The patient is a 44-year-old male presenting with Type 2 Diabetes Mellitus for a routine follow-up. The patient has a recent Hemoglobin A1c measurement of 6.3%, indicating well-managed glucose levels. He denies experiencing any symptoms commonly associated with diabetes such as numbness, tingling, polyuria, or polydipsia. No signs of diabetic complications like chest pain or shortness of breath are present. The patient's previous eye exam is already scheduled for October, ensuring ongoing ophthalmic health monitoring. The patient continues to exhibit positive sensation in both feet, confirmed through monofilament testing, suggesting no peripheral neuropathy. Social History Health Maintenance - Encouraged to get lab tests for diabet es monitoring. - Eye exam scheduled for October. - Positive sensation with monofilament t esting on feet to confirm no peripheral neuropathy. Review of Systems - Neurological: Denies numbness or tingl ing. - Genitourinary: Denies polyuria. - General: Denies polydipsia. - Cardiovascular: Denies chest pain. - Respiratory: Denies shortness of breat h. Physical Exam General: Cooperative, healthy appearing, comfortable, no acute distress and well developed Orientation: Patient oriented x3 Limitations: No limitations Head: Normal to inspection Ears: Hearing grossly normal bilaterally Nose: Normal external nose present Face and sinus: Normal facial exam Eyes: Appearance normal, both eyes and all related structures Neck: Normal visual inspection and Yes full ROM Respiratory: Normal respiratory effort and able to speak in complete sentences. Clear to auscultation bilaterally Cardiovascular: Regular rate and rhythm. Normal S1 and S2 GI: Normal to inspection. Soft to palpation and nontender Skin: No rashes or lesions noted Neuro: Patient oriented x3, positive sensation with use of monofilament to bilaterally feet were intact bilaterally Extremities: Normal to inspection Results - Lab: Hemoglobin A1c was 6.3%. Plan - Continue monitoring of Type 2 Diabetes Mellitus with future lab tests to assess glycemic control. - Verify patient compliance with [facility] eye exam in October as part of diabetes management. - Reinforce diabetes education and lifes tyle modifications to support glycemic control. Patient was informed and verbally consented to the use of an ambient scribe for clinic note documentation during this visit. Discussion Notes I discussed with the patient the importance of maintaining current lifestyle interventions for optimal management of Type 2 Diabetes Mellitus. We reviewed the implications of the Hemoglobin A1c result of 6.3%, which indicates good control. I emphasized the necessity of regular monitoring, including lab testing and eye examinations, as preventative measures. The patient also received reassurance regarding the absence of peripheral neuropathy, as demonstrated by intact sensation during the monofilament test. I advised adherence to prescribed management to sustain health and prevent any possible complications. Patient Instructions - Continue current diabetes management p sharron and lifestyle choices that support glucose control. - Attend the scheduled eye exam in October as part of diabetic health maintenance. - Monitor for any new symptoms such as n umbness, increased thirst, or frequent urination and report them promptly. - Plan for routine lab work for ongoing diabetes monitoring as discussed. [facility] Medical History Hypertension Surgical History H/O elbow surgery S/P ACL repair History of surgery on lower extremity Hx of eye surgery Family History Father No problems noted. Mother No problems noted. Social History Housing: House Alcohol intake: current Alcohol intake frequency: 3 or more drinks per day Alcohol type: beer Patient Tobacco Use Status: Former Tobacco user e-Cigarette/Vaping Use: Never Used service: No Current occupational status: employed Current occupation: [employer] Current occupational exposures/hazards: No Cognitive needs: No Hearing needs: No Vision needs: Yes Questionnaire PHQ-9 Over the last 2 weeks, how often have you been bothered by any of the following problems? 1. Little interest or pleasure in doing things: not at all 2. Feeling down, depressed, or hopeless: not at all 3. Trouble falling or staying asleep, or sleeping too much: not at all 4. Feeling tired or having little energy: not at all 5. Poor appetite or overeating: not at all 6. Feeling bad about yourself - or that you are a failure or have let yourself or your family down: not at all 7. Trouble concentrating on things, such as reading the newspaper or watching television: not at all 8. Moving or speaking so slowly that other people could have noticed. Or the opposite - being so fidgety or restless that you have been moving around a lot more than usual: not at all 9. Thoughts that you would be better off or of hurting yourself in some way: not at all Total score: 0 Depression Screening Interpretation: Negative Depression Screening Done: Yes 42979 - PHQ-9 Billing: Yes Source: Developed by Drs. Zeb Scott, iNkole Hope, Kin Pressley and colleagues, with an educational elsie from [employer]. Thrive Questionnaire Date Thrive assessed: 09/17/24 I am a: Patient What is your living situation today?: I have a steady place to live Within the past 12 months, did the food you bought not last and you didn't have the money to get more?: Never true Within the past 12 months, did you worry whether your food would run out before you got money to buy more?: Never true Do you have trouble paying for medicines?: No Do you have trouble getting transportation to medical appointments?: No Do you have trouble paying your heating and electricity bill?: No Do you have trouble taking care of your child, family member or friend?: No Do you have trouble with day-to-day activities such as bathing, preparing meals, shopping, managing finances, etc.?: No Are you currently unemployed and looking for a job?: No Are you interested in more education?: No Please select the resources that you would like help with: None Currently or been in a relationship where the following occur: No concerns reported THRIVE Score: 0 AUDIT C Alcohol Use Questionnaire (AUDIT-C) 1. How often do you have a drink containing alcohol?: 4 or more times a week 2. How many drinks containing alcohol do you have on a typical day when you are drinking?: 3 or 4 3. How often do you have six or more drinks on one occasion?: Daily or almost daily Total Score: 9 Score Reviewed/Action Taken: Yes DIDIER-7 AMB Questionnaire DIDIER-7 Date DIDIER - 7 assessed: 09/17/24 Feeling nervous, anxious, or on edge: 0 = Not at all Not being able to stop or control worryin = Not at all Worrying too much about different things: 0 = Not at all Trouble relaxin = Not at all Being so restless that it is hard to sit still: 0 = Not at all Becoming easily annoyed or irritable: 0 = Not at all Feeling afraid as if something awful might happen: 0 = Not at all Total DIDIER-7 score (0-4 normal; 5-9 mild; 10-14 moderate; 15-21 severe): 0 Source: Developed by Drs. Zeb Scott, Nikole Hope, Kin Pressley and colleagues, with an educational elsie from [employer]. DIDIER-7 Assessment Billing DIDIER-7 Assessment Tool: DIDIER-7 Assessment 58230 Physical exam (Primary Care) Vital Signs: Last Vital Signs Temp 97.9 F 09/17/24 09:07 Pulse 90 09/17/24 09:07 Resp 16 09/17/24 09:07 BP 120/80 09/17/24 09:07 Pulse Ox 98 09/17/24 09:07 Oxygen Delivery Method Room Air 09/17/24 09:07 BMI result Body Mass Index 36.8 Tobacco/Smoking Status: Tobacco use Status Tobacco use date assessed 09/17/24 09/17/24 09:08 Patient Tobacco Use Status Former Tobacco user 09/17/24 09:08 e-Cigarette/Vaping Use Never Used 09/17/24 09:08 PHQ-9: PHQ-9 Score PHQ-9: Total score 0 09/17/24 09:08 Depression Screening Interpretation: Negative Thrive Assessment: Date of Thrive Assessment Date Thrive assessed 09/17/24 09/17/24 09:08 Currently or been in a relationship where the following occur: No concerns reported Coding Level of Care Code Est Pt Level 3 (90786) Diagnoses Diabetes E11.9 Screening for prostate cancer Z12.5 Additional Codes DIDIER-7 Assessment Billing - DIDIER-7 Assessment Tool: DIDIER-7 Assessment 96500 ([id number]) PHQ-9 - 81311 - PHQ-9 Billing: Yes ([id number]) Assessment & Plan Assessment & Plan (1) Diabetes: Code(s): E11.9 - Type 2 diabetes mellitus without complications Category: Medical (2) Screening for prostate cancer: Code(s): Z12.5 - Encounter for screening for malignant neoplasm of prostate Category: Medical Plan . Orders: Orders Comprehensive [place]. Panel Fast Today E11.9 - Type 2 diabetes mellitus without complications Lipid Panel Today E11.9 - Type 2 diabetes mellitus without complications Complete Blood Count Auto Diff Today E11.9 - Type 2 diabetes mellitus without complications TSH reflex Free T4 Today E11.9 - Type 2 diabetes mellitus without complications UA CC w/rflx Micro + Cult Today E11.9 - Type 2 diabetes mellitus without complications Prostate Specific Antigen Scr Today Z12.5 - Encounter for screening for malignant neoplasm of prostate
== END 2024-09-17 09:46 | disposition home or self-care (01) ==
PROVIDERS: PCP Nurse Practitioner Family; Visit Provider Nurse Practitioner Family
DX: E11.9 Type 2 diabetes mellitus without complications (principal); Z12.5 Encounter for screening for malignant neoplasm of prostate

== ENCOUNTER → 2024-09-17 09:01 | Outpatient (BNVA) | payer OTHER, SELFPAY | PROVIDERS: PCP Nurse Practitioner Family; Visit Provider Nurse Practitioner Family | DX: E11.9 Type 2 diabetes mellitus without complications (principal) | CPT/HCPCS: 96127 ==

== ENCOUNTER 2024-10-15 15:00 | Outpatient (RCR) | payer OTHER, SELFPAY ==
--- NOTE | 2024-09-13 14:46 | MHC.PT.EP ---
[facility] [place] Office [place] Office [place] Office [address] Marco Jonas [address] [phone] F: [phone] F: [phone] F: [phone] F: [phone] Physical Therapy Plan of Care Date of Evaluation: 09/13/24 Date of Surgery: Diagnosis: dorsalgia pain in unspecified limb Assessment: 44 y/o male with s/s consistent with lumbar derangement resulting in pain and difficulty with sleeping, sitting, lifting, prolonged standing and walking. Examination shows decreased lumbar AROM, decreased hip ROM, decreased piriformis/ hip flexor length, decreased LE/core strength, pain, and impaired postural awareness. Recommend PT 2x/week for 5 weeks to address impairments, implement HEP, and optimize functional mobility. Pt has high co-pay so will come 1x/week Frequency and Duration: The patient will be seen 1x/week for 5 weeks Short Term Goals: 3 weeks I with HEP Compliant with lumbar roll Demonstrate no radicular sx with functional mobility Retirement Goals: 5 weeks I with hEP and self management of sx Pt will be able to sit > 40 min witn pain < 3/10 Pt will improve Oswestry to 10/50 (IR 21/50) Treatment Plan: Modalities to reduce pain, spasms and effusion. Manual therapy to restore motion and function. Therapeutic exercise to improve strength and flexibility. Neuromuscular re-education for posture and balance. Therapeutic activities to return to functional activities of daily living. Electronically signed by: Bing Martínez PT Please sign and return to therapist. Thank you for your referral.
--- NOTE | 2024-11-14 08:04 | MHC.PT.DC ---
[facility] [place] [facility] [place] [facility] [place] Office [address] Marco Jonas [address] [phone] F: [phone] F: [phone] F: [phone] F: [phone] Physical Therapy Discharge Report Diagnosis: dorsalgia pain in unspecified limb Date of Surgery: Date of Evaluation: 09/13/24 Date of Discharge: 11/14/24 Treatments to Date: 4 Cancellations to Date: 0 No Shows to Date: 0 Discharge Status: Improved Function Independent with HEP Discharge Summary: Pt I with HEP and would like to continue independently d/t high co-pay. Electronically signed by: Bing Martínez PT Please sign and return to therapist. Thank you for your referral.
== END 2024-11-14 08:04 | disposition home or self-care (01) ==
LOC: HO.PTCHIC 15:00
PROVIDERS: PCP Nurse Practitioner Family; Visit Provider Nurse Practitioner Family
DX: M54.9 Dorsalgia, unspecified (principal); M79.609 Pain in unspecified limb
CPT/HCPCS: 97110; 97140; 97161

== ENCOUNTER 2024-11-08 18:04 | Outpatient (REF) | payer OTHER, SELFPAY ==
--- NOTE | ~2024-11-08 | MR_ITS ---
EXAMINATION: MR LUMBAR SPINE WITHOUT CONTRAST CLINICAL INFORMATION: Dorsalgia, unspecified. COMPARISON: None available. TECHNIQUE: MRI of the lumbar spine was obtained using routine sequences without contrast. FINDINGS: Last rib-bearing vertebra labeled T12. There is mild bone marrow STIR signal abnormality in the right and to a lesser extent left hemisacrum alar. Multilevel disc desiccation and marginal osteophyte formation from T11-12 to L5-S1 more conspicuous at L1-2 and L4-5 levels. The alignment is normal. Conus medullaris ends at superior endplate of L1 with normal signal. T12-L1: No disc herniation. No neuroforamina stenosis. L1-2: Broad-based disc bulging. Facet joint hypertrophy. Facet effusion. No compression upon neural elements. L2-3: Broad-based disc bulging. Facet joint and ligamentum flavum hypertrophy. No compression upon neural elements. L3-4: Broad-based disc bulging. Facet joint and ligamentum flavum hypertrophy. Reduced AP diameter of the thecal sac and the neural foramina. L4-5: Prostate disc bulging. Facet joint and ligamentum flavum hypertrophy. Reduced AP diameter of the thecal sac and bilateral neuroforamina stenosis encroaching the neural elements. L5-S1: Broad-based disc bulging. Facet joint hypertrophy. There is a 5 mm fluid signal characteristic abnormality in the anterior margin of the right facet joint extending into the right neural foramen. Bilateral facet joint hypertrophy. Bilateral neuroforamina stenosis right greater than left encroaching the L5 exiting nerve roots. No prevertebral compartment hematoma or masses. MR/MR lumbar spine wo con IMPRESSION: Multilevel spondylosis more conspicuous at L4-5 and L5-S1 resulting in central spinal canal and bilateral neuroforamina narrowing at L4-5 encroaching the exiting nerve roots. Probable 5 mm right L5-S1 facet joint cyst with spondylosis encroaching the right L5 exiting nerve root. Electronically signed by: Kenneth Williamson MD 11/11/2024 08:03 AM EDT
== END 2024-11-08 18:05 | disposition home or self-care (01) ==
LOC: HO.MRI 18:04
PROVIDERS: PCP Nurse Practitioner Family; Visit Provider Nurse Practitioner Family
DX: M54.9 Dorsalgia, unspecified (principal); M54.16 Radiculopathy, lumbar region; G89.29 Other chronic pain
CPT/HCPCS: 72148

== ENCOUNTER → 2024-11-08 18:11 | Outpatient (BNV) | payer OTHER, SELFPAY | PROVIDERS: PCP Nurse Practitioner Family; Visit Provider Radiology Diagnostic Radiology | DX: M54.50 Low back pain, unspecified (principal) | CPT/HCPCS: 72148 ==

== ENCOUNTER 2024-11-18 08:35 | Outpatient (AMB) | payer OTHER, SELFPAY ==
--- NOTE | 2024-11-18 08:40 | A.SPINEOV_ITS ---
Vital Signs 11/18/24 08:41 Height 5 ft 6 in Weight 228 lb BMI 36.8 Intake Visit Reasons: LBP Intake Note: Mr. Almendarez is here today c/o low back pain. 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 He is a very nice 44-year-old gentleman presents to the office today for evaluation of a chronic left-sided lower back region pain which radiates down his left leg. He had it maybe 8 or 9 years ago and it went away on its own, but the last 1-2 years it has come back just as intense as ever. He does not recall a specific event that started it. There is no particular trauma etc. the pain is aggravated with lying flat at night specifically on his left side and goes away or at least improved significantly if he gets up and walks around. He takes diclofenac and Tylenol during the day just to help if there is any discomfort. He can be fine when he is at workup moving and doing things but the soon as he lays down at night the pain is very intense. There is some tingling and what he feels the bottom of his foot. His leg feels weak at times a He has been through conservative treatment. Chiropractic made him worse, physical therapy was no help and he did undergo a number of cortisone injections many years ago without any relief. s well. He comes in today to review his MRI showing some degenerative changes. PMH: He is a diabetic but his A1c is very well controlled, history of high cholesterol, bilateral cataract surgery, reports 10 knee surgeries on the right side Social hx: He does not smoke, drink or use any recreational drugs Medications: Jardiance, glipizide, lisinopril, diclofenac, Tylenol, atorvastatin Allergies: None Physical exam: Awake alert oriented no acute distress, patient is stands and walks with normal gait, strength and reflexes normal, positive finger Vamshi test, negative LAURA testing Imaging review: Lumbar MRI done at [place] shows very mild degenerative disc disease, on the right at L5-S1 there is a cyst in the foramen suspect it could be perineural cyst versus synovial cyst. Impression: 44-year-old male presents for evaluation of chronic left-sided low back pain that will radiate down his posterior hamstring into his calf with numbness in the bottom of his foot, for which his MRI looks relatively benign, no evidence of nerve compression that I could see on the left. There is a small cyst on the right in the L5 foramen but obviously that is not connected to his current issue. That could just be an incidental finding very likely. I do not have an explanation for symptoms this time. This could be some kind of atypical presentation of an SI joint instability or inflammation. I would like him to go for left SI joint injection and see if this helps . I will refer him to Dr.Ow jennings. If that helps we could discuss further treatment for that, if not I will defer to Dr. Le if he thinks there any other injections or treatments that might be meaningful. Thank you for allowing us to care for your patient. The total time spent with this visit with this patient was 45 minutes reviewing history, physical exam, lumbar imaging review, and implementation of treatment plan or further diagnostic testing Javier Yadav MD,PhD [facility] Orders: Referrals Pain Management Referral G89.29 - Other chronic pain, M54.16 - Radiculopathy, lumbar region Coding Level of Care Code New Pt Level 4 (69646) Diagnoses Chronic radicular pain of lower back M54.16; G89.29
[2024-11-18 08:41] VITALS: BMI 36.8
== END 2024-11-18 09:48 | disposition home or self-care (01) ==
LOC: HO.HNS 08:36
PROVIDERS: PCP Nurse Practitioner Family; Referring Provider Nurse Practitioner Family; Visit Provider Physician Assistant
DX: M54.16 Radiculopathy, lumbar region (principal); G89.29 Other chronic pain
CPT/HCPCS: 99204

== ENCOUNTER → 2024-11-18 08:35 | Outpatient (BNVA) | payer OTHER, SELFPAY | PROVIDERS: PCP Nurse Practitioner Family; Referring Provider Nurse Practitioner Family; Visit Provider Physician Assistant ==

== ENCOUNTER 2024-12-06 10:39 | Outpatient (AMB) | payer OTHER, SELFPAY ==
--- NOTE | 2024-12-06 10:41 | MHC.OFFVIS ---
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 Over the past eight to nine years, he has experienced persistent left-sided low back pain radiating to the posterior thigh and calf, with a recent increase in severity in the last one to two years. He characterizes his pain as a stabbing sensation, interfering with his sleep, and notes associated symptoms including tingling in the left foot and intermittent left leg weakness. Several interventions have been attempted unsuccessfully, including medication management with diclofenac and acetaminophen, propranolol treatment, a lumbar cortisone injection, and physical therapy. His pain remains particularly problematic at night and is exacerbated by certain positions and movements. An MRI revealed a small cyst on the right L5 foramen, which does not align with his clinical presentation. Pain Description - Quality: Stabbing sensation - Location: Left-sided low back, radiating to posterior thigh and calf - Severity: 4-7/10, increasing to 8-9/10 with certain activities - Radiation: Spread to the posterior thigh and calf - Associated Symptoms: Tingling at the bottom of the left foot, left leg weakness - Exacerbating Factors: Specific movements, lying down - Relieving Factors: None effective - Interference: Disturbs sleep, affects physical job performance Results - MRI findings: Small cyst on right L5 foramen, benign impression Pain Management - Affect: Pain significantly impacts sleep; associated with mental distress due to ongoing symptoms - Analgesia: Current pain levels reported at 4-7/10, peaking at 8-9/10; previous trial of diclofenac and acetaminophen without relief - Adverse Effects: Propranolol and lumbar cortisone injection found to be ineffective - Activities of Daily Living: 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 Mother No problems noted. 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 - [employer] Current occupational exposures/hazards: No Cognitive needs: No Hearing needs: No Vision needs: Yes Physical Exam Vital Signs: Last Vital Signs Pulse 78 12/06/24 10:42 Resp 16 12/06/24 10:42 BP 134/90 H 12/06/24 10:42 Pulse Ox 98 12/06/24 10:42 Oxygen Delivery Method Room Air 12/06/24 10:42 BMI result Body Mass Index 35.2 Assessment & Plan Assessment & Plan (1) Chronic radicular pain of lower back: Code(s): M54.16 - Radiculopathy, lumbar region; G89.29 - Other chronic pain Category: Medical Plan Plan - Initiate a nerve conduction study to assess for potential nerve involvement causing symptoms. - Delay any interventional procedures pending EMG results. - Continue current pain medications and review effectiveness at follow-up. - Schedule follow-up visit after diagnostic results are obtained to reassess and plan further interventions. Patient was informed and verbally consented to the use of an ambient scribe for clinic note documentation during this visit. Discussion Notes I discussed with the patient the ongoing management of his chronic low back pain with radicular symptoms and the plan to conduct a nerve conduction study (EMG) to further assess his symptoms. I explained that the left sacroiliac joint injection will be considered after reviewing EMG results. We spoke about the challenges and limitations of various treatments tried previously, including medications and physical therapy, with current options focusing on diagnostic clarity. The patient expressed understanding and agreement with the outlined plan. Patient Instructions - Continue using prescribed medications as necessary for pain relief. - Await a call regarding scheduling of the nerve conduction study (EMG). - Monitor symptoms and report any significant changes or worsening. - Attend follow-up appointments as scheduled after completing the nerve conduction study. Orders: Orders NE electromyogram (EMG) 12/06/24 M54.16 - Radiculopathy, lumbar region, G89.29 - Other chronic pain Coding Level of Care Code Est Pt Level 3 (36401) Diagnoses Chronic radicular pain of lower back M54.16; G89.29
[2024-12-06 10:42] VITALS: BP 134/90; PULSE 78; RESP 16; O2SAT 98; BMI 35.2
== END 2024-12-06 11:31 | disposition home or self-care (01) ==
LOC: HO.PMC 10:40
PROVIDERS: PCP Nurse Practitioner Family; Referring Provider Physician Assistant; Visit Provider Internal Medicine
DX: M54.16 Radiculopathy, lumbar region (principal); G89.29 Other chronic pain
CPT/HCPCS: 99213

== ENCOUNTER → 2024-12-06 10:39 | Outpatient (BNVA) | payer OTHER, SELFPAY | PROVIDERS: PCP Nurse Practitioner Family; Referring Provider Physician Assistant; Visit Provider Internal Medicine ==

== ENCOUNTER 2025-01-21 09:21 | Outpatient (REF) | payer OTHER, SELFPAY ==
--- NOTE | 2025-01-21 09:25 | EMG_ITS ---
FINDINGS: Left tibial and peroneal motor studies were performed. Left superficial peroneal, sural, and median and lateral plantar sensory mixed studies were performed. Tibial H-reflex was obtained and needle examination was performed. 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 Further EMG and nerve conduction study testing is recommended to evaluate the type and nature of this neuropathy. MD JOSIAH Gross/NIKKO / [id number]
== END 2025-01-21 09:22 | disposition home or self-care (01) ==
LOC: HO.NEURO 09:21
PROVIDERS: PCP Nurse Practitioner Family; Visit Provider Internal Medicine
DX: G89.29 Other chronic pain (principal); M54.16 Radiculopathy, lumbar region
CPT/HCPCS: 95886; 95910

== ENCOUNTER 2025-01-27 09:26 | Outpatient (AMB) | payer OTHER, SELFPAY ==
--- NOTE | 2025-01-27 09:45 | A.OFFVIS_ITS ---
Vital Signs 01/27/25 09:46 Height 5 ft 6 in Weight 221 lb BMI 35.7 BP 124/86 Blood Pressure Location Lt brachial Position Sitting Respiration 16 Pulse 78 Pulse Source Pulse Oximeter Pulse Oximetry (%) 97 Oxygen Delivery Method Room Air Intake Visit Reasons: Rescheduled appointment from Monday Systems Librarian Required: No Accompanied by: Self / Same As Patient Allergies No Known Allergies Allergy (Verified 02/07/25 10:37) HPI HPI Rescheduled appointment from Monday: Details: History of Present Illness The patient is a 44-year-old male presenting with specific left-sided pain in the L5-S1 distribution. The patient had an EMG study previously conducted, which showed features suggestive of axonal polyneuropathy, yet no bilateral symptoms were observed; symptoms are confined to the left side. The pain starts in the left lower back and radiates down the leg, involving the side of the foot. The patient reports the pain intensity is severe during certain activities such as sitting with the legs extended. Previous management with physical therapy, use of a massager, and inversion table did not alleviate the symptoms. MRI findings have been unremarkable with regard to these specific symptoms. Pain Description - Onset and Timing: Sudden onset noted specific to activities. - Quality and Character: Severe pain, especially while sitting with legs extended or working on the deck. - Primary Location: Left lower back. - Areas of Radiation: Down the left leg to the side of the foot. - Exacerbating Factors: Sitting on the ground with legs extended; sleeping on the left side. - Relieving Factors: None noted with previous attempts using physical therapy or massagers. - Interference with Functions: Sleeping, sitting comfortably, working on tasks like deck construction. Physical Exam - Musculoskeletal- Positive straight leg raise test on the left side. Results - EMG: Suggestive of axonal polyneuropathy. - MRI: Unremarkable findings regarding the current symptoms. Pain Management - Affect: Pain is causing issues with sleep and functionality. - Analgesia: Previous attempts with physical therapy and massage had no effect. - Adverse Effects: No specific adverse effects from treatments. - Activities of Daily Living: Pain interferes with sleeping, and sitting comfortably. - Aberrant Drug Related Behaviors: None reported. [facility] Medical History Hypertension Surgical History H/O elbow surgery S/P ACL repair History of surgery on lower extremity Hx of eye surgery Family History Father No problems noted. Mother No problems noted. Social History Housing: House Alcohol intake: current Alcohol intake frequency: 3 or more drinks per day Alcohol type: beer Patient Tobacco Use Status: Former Tobacco user e-Cigarette/Vaping Use: Never Used service: No Current occupational status: employed Current occupation: [employer] Current occupational exposures/hazards: No Cognitive needs: No Hearing needs: No Vision needs: Yes Physical Exam Vital Signs: Last Vital Signs Pulse 78 01/27/25 09:46 Resp 16 01/27/25 09:46 BP 124/86 01/27/25 09:46 Pulse Ox 97 01/27/25 09:46 Oxygen Delivery Method Room Air 01/27/25 09:46 BMI result Body Mass Index 35.7 Assessment & Plan Assessment & Plan (1) Chronic radicular pain of lower back: Code(s): M54.16 - Radiculopathy, lumbar region; G89.29 - Other chronic pain Category: Medical Plan Plan - L5-S1 TFE injection on the left side to address localized pain in that distribution. - Coordinate insurance authorization for the procedure. - Encourage continuation of specific exercises and stretches that do not provide additional pain, while monitoring the results of the intervention. Patient was informed and verbally consented to the use of an ambient scribe for clinic note documentation during this visit. Discussion Notes I discussed with the patient the inconclusive nature of the EMG relative to his specific left-sided symptoms. We reviewed the MRI results that did not indicate particular issues with the left side. Regarding management, I explained the potential benefits and risks of proceeding with an L5-S1 injection, specifically targeting the affected area. The patient was informed of the possibility that the injection may reveal issues not visible on MRI and may provide symptomatic relief. Consent was given to proceed with requesting insurance coverage for the procedure. I encouraged ongoing exercises that do not exacerbate symptoms and advised a follow-up to evaluate the response from the injection. Patient Instructions - Continue exercises as long as they do not aggravate the pain. - Plan for an L5-S1 injection as recommended. - Monitor symptoms and avoid activities that exacerbate pain. - Follow up as instructed after the procedure. Coding Level of Care Code New Pt Level 4 (78900) Diagnoses Chronic radicular pain of lower back M54.16; G89.29
[2025-01-27 09:46] VITALS: BP 124/86; PULSE 78; RESP 16; O2SAT 97; BMI 35.7
== END 2025-01-27 10:11 | disposition home or self-care (01) ==
LOC: HO.PMC 09:27
PROVIDERS: PCP Nurse Practitioner Family; Visit Provider Internal Medicine
DX: M54.16 Radiculopathy, lumbar region (principal); G89.29 Other chronic pain
CPT/HCPCS: 99214

== ENCOUNTER → 2025-01-27 09:26 | Outpatient (BNVA) | payer OTHER, SELFPAY | PROVIDERS: PCP Nurse Practitioner Family; Visit Provider Internal Medicine ==

== ENCOUNTER 2025-02-07 10:09 | Outpatient (REF) | payer OTHER, SELFPAY ==
--- NOTE | ~2025-02-07 | XR_ITS ---
EXAMINATION: XR SHOULDER, RIGHT CLINICAL INFORMATION: M25.511 - Pain in right shoulder COMPARISON: None available. TECHNIQUE: AP external rotation, Grashey, scapular Y, and axillary views of the right shoulder. FINDINGS: Degenerative changes within the acromioclavicular joint resulting in superior position of the clavicle with respect to the acromion. There is an exostosis within the inferior margin of the distal clavicle. No acute cortical disruption. No lytic or blastic lesions. Glenohumeral joint is intact with normal alignment. XR/XR shoulder RT min 2V IMPRESSION: Chronic superiorly subluxed acromioclavicular joint with associated degenerative changes. Electronically signed by: Kenneth Williamson MD 02/07/2025 11:37 AM EDT
== END 2025-02-07 10:10 | disposition home or self-care (01) ==
LOC: HO.HMGCX 10:09
PROVIDERS: PCP Nurse Practitioner Family; Visit Provider Internal Medicine
DX: M25.511 Pain in right shoulder (principal); Z87.891 Personal history of nicotine dependence
CPT/HCPCS: 73030

== ENCOUNTER 2025-02-07 10:09 | Outpatient (AMB) | payer OTHER, SELFPAY ==
[2025-02-07 10:35] VITALS: BP 124/86; PULSE 80; TEMP 36.6; O2SAT 99
--- NOTE | 2025-02-07 10:35 | MHC.OFFWIV ---
Intake Vital Signs 02/07/25 10:35 Height 56 ft Weight 220 lb BMI 0.3 BP 124/86 Blood Pressure Location Lt brachial Position Sitting Pulse 80 Pulse Source Pulse Oximeter Temp 98 F Temp Source Oral Pulse Oximetry (%) 99 Oxygen Delivery Method Room Air Intake Visit Reasons: EP RT shoulder pain Intake Note: pt present for right shoulder pain for few months, initially felt a pop Patient Tobacco Use Status: Former Tobacco user Allergies No Known Allergies Allergy (Verified 02/07/25 10:37) Medication List - Last Reconciled 02/07/25 by Aman Hewitt MD atorvastatin 20 mg PO DAILY diclofenac sodium 75 mg PO BID PRN 30 days glipizide 5 mg PO DAILY Jardiance (empagliflozin) 25 mg PO DAILY NS lancets (FreeStyle Lancets) As directed lisinopril 10 mg PO DAILY HPI EP RT shoulder pain HPI Details History - The patient is a 44-year-old male presenting with right shoulder pain. - The shoulder pain started a couple of months ago after a popping sensation during an unknown activity. - The pain has not improved over time and is exacerbated by lying on the shoulder or reaching for objects. - The patient is currently taking diclofenac for back pain, which has not alleviated the shoulder pain. 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 - The patient also reports back pain with radiculopathy, for which he is taking diclofenac. Problem List - Rotator cuff injury right - Back pain with radiculopathy Patient Instructions - Schedule and complete a right shoulder x-ray as soon as possible. - Follow up with an virtual reality specialist for further evaluation and management. - Consider starting physical therapy for the shoulder if recommended by the virtual reality specialist. - Take tramadol at night to help with sleep if shoulder pain persists. - Apply ice to the shoulder to help reduce pain and inflammation. 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 Mother No problems noted. 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 - [employer] Current occupational exposures/hazards: No Cognitive needs: No Hearing needs: No Vision needs: Yes Physical Exam Vital Signs: Last Vital Signs Temp 98 F 02/07/25 10:35 Pulse 80 02/07/25 10:35 BP 124/86 02/07/25 10:35 Pulse Ox 99 02/07/25 10:35 Oxygen Delivery Method Room Air 02/07/25 10:35 BMI result Body Mass Index 0.3 Assessment & Plan Assessment & Plan (1) Shoulder pain, right: Code(s): M25.511 - Pain in right shoulder Qualifiers: Chronicity: acute Qualified Code(s): M25.511 - Pain in right shoulder Plan History - The patient is a 44-year-old male presenting with right shoulder pain. - The shoulder pain started a couple of months ago after a popping sensation during an unknown activity. - The pain has not improved over time and is exacerbated by lying on the shoulder or reaching for objects. - The patient is currently taking diclofenac for back pain, which has not alleviated the shoulder pain. 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 - The patient also reports back pain with radiculopathy, for which he is taking diclofenac. Problem List - Rotator cuff injury right - Back pain with radiculopathy Patient Instructions - Schedule and complete a right shoulder x-ray as soon as possible. - Follow up with an virtual reality specialist for further evaluation and management. - Consider starting physical therapy for the shoulder if recommended by the virtual reality specialist. - Take tramadol at night to help with sleep if shoulder pain persists. - Apply ice to the shoulder to help reduce pain and inflammation. Orders: Orders XR shoulder RT min 2V Today M25.511 - Pain in right shoulder Referrals Orthopedics Referral M25.511 - Pain in right shoulder Medications: New tramadol 50 mg PO BEDTIME PRN 10 tabs 0RF pain 10 days Coding Level of Care Code Est Pt Level 3 (80342) Diagnoses Acute pain of right shoulder M25.511 Chronicity: acute
== END 2025-02-07 11:22 | disposition home or self-care (01) ==
PROVIDERS: PCP Nurse Practitioner Family; Visit Provider Internal Medicine
DX: M25.511 Pain in right shoulder (principal)

== ENCOUNTER → 2025-02-07 11:03 | Outpatient (BNV) | payer OTHER, SELFPAY | PROVIDERS: PCP Nurse Practitioner Family; Visit Provider Radiology Diagnostic Radiology | DX: M19.011 Primary osteoarthritis, right shoulder (principal) | CPT/HCPCS: 73030 ==

== ENCOUNTER 2025-02-24 12:36 | Outpatient (AMB) | payer OTHER, SELFPAY ==
[2025-02-24 12:49] VITALS: BMI 35.5
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
== END 2025-02-24 13:04 | disposition home or self-care (01) ==
LOC: HO.HOS 12:37
PROVIDERS: PCP Nurse Practitioner Family; Visit Provider Orthopaedic Surgery
DX: M25.311 Other instability, right shoulder (principal)
CPT/HCPCS: 99203; G2211

== ENCOUNTER 2025-03-20 06:11 | Outpatient (REF) | payer OTHER, SELFPAY ==
[2025-03-20 10:11] LABS: MANUAL DIFF FLAG NO
[2025-03-20 10:17] LABS: Hematocrit 43.5 % (42.0-52.0); Hemoglobin 14.8 g/dl (14.0-18.0); Imm Gran Abs Auto 0.04 X10*3/uL (0.00-0.03); Imm Gran Pct Auto 0.6 % (0.0-0.4); Lymphocytes Absolute Auto 2.1 X10*3/uL (1.2-4.9); Mean Corpuscular HGB Conc 34.0 g/dl (31.0-36.0); Mean Corpuscular Hemoglobin 32.6 pg (27.0-33.0); Mean Corpuscular Volume 95.8 fL (80.0-98.0); NRBC Abs Auto 0.000 X10*3/uL (0.0-0.012); NRBC Pct Auto 0.0 /100WBC (0.0-0.2); Platelet Count 245 X10*3/uL (160-400); Red Blood Count 4.54 X10*6/uL (4.60-5.80); White Blood Count 6.2 X10*3/uL (4.8-10.8)
[2025-03-20 10:30] LABS: Hemoglobin A1C 184.2765 umol/L; Total Hemoglobin (HGBA1C) 3987.7916 umol/L
[2025-03-20 10:50] LABS: Alanine Aminotransferase 41 U/L (0-40); Albumin Level 4.9 g/dL (3.5-5.0); Alkaline Phosphatase 63 U/L (39-117); Anion Gap 15 (12-20); Aspartate Amino Transferase 41 U/L (5-37); Blood Urea Nitrogen 14 mg/dL (9-16); Calcium 9.2 mg/dL (8.4-10.2); Carbon Dioxide 25 mmol/L (22-29); Chloride 104 mmol/L (96-108); Cholesterol 143 mg/dL (<200); Estimated Glomerular Filt Rate > 60; HDL Cholesterol 46 mg/dL (>40); Potassium 4.6 mmol/L (3.3-5.1); Sodium 139 mmol/L (135-145); Total Protein 7.9 g/dL (6.5-8.0); Triglycerides 217 mg/dL (<150)
== END 2025-03-20 06:12 | disposition home or self-care (01) ==
LOC: HO.HMGCLDS 06:11
PROVIDERS: PCP Nurse Practitioner Family; Visit Provider Nurse Practitioner Family
DX: M54.16 Radiculopathy, lumbar region (principal); G89.29 Other chronic pain; E11.9 Type 2 diabetes mellitus without complications; Z12.5 Encounter for screening for malignant neoplasm of prostate
CPT/HCPCS: 36415; 64483; 80053; 80061; 83036; 84153; 84443; 85025; J1100; J2003; Q9967

== ENCOUNTER 2025-03-20 06:11 | Outpatient (REF) | payer OTHER, SELFPAY ==
--- NOTE | ~2025-03-20 | FL_ITS ---
EXAMINATION: FL GUIDANCE ONLY HISTORY: M54.9 - Dorsalgia, unspecified COMPARISON: None available. TECHNIQUE: Fluoroscopy time: 0.2 minutes. Cumulative Dose: 4.20 mGy. DAP: 0.0297 mGym2 Images: 3. FINDINGS: Fluoroscopic spot films of the lumbar spine demonstrate a needle and contrast material inferior to the left L5 pedicle. FL/FL guidance in treatment room IMPRESSION: Fluoroscopy during procedure. Please see procedure report for additional information. Electronically signed by: Zeb Gandhi MD 03/20/2025 01:07 PM EDT
--- OUTSIDE RECORDS SUMMARY | 2025-03-20 06:13 | XMS_ITS ---
Author Name [facility] Organization Unknown Care Team Organization Name Specialty Phone Email Start Date End Da te [facility] MEDARDO YOLANDA Primary Care 06/21/2022 4
== END 2025-03-20 06:12 | disposition home or self-care (01) ==
LOC: CF 06:11
PROVIDERS: Visit Provider Internal Medicine
DX: Z13.89 Encounter for screening for other disorder (principal)

== ENCOUNTER 2025-03-20 10:25 | Outpatient (AMB) | payer OTHER, SELFPAY ==
[2025-03-20 10:33] VITALS: BP 128/91; PULSE 93; RESP 18; O2SAT 97; BMI 35.7
--- NOTE | 2025-03-20 10:33 | A.OFFVIS_ITS ---
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 Denies any recent cough, cold, infection, fever or other significant changes in medical history since last office visit. [facility] Medical History Hypertension Surgical History H/O elbow surgery S/P ACL repair History of surgery on lower extremity Hx of eye surgery Family History Father No problems noted. Mother No problems noted. 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 The patient was placed in the prone position on the fluoroscopy table. The lumbosacral area was prepped with chloraprep, allowed to dry and draped in domingo rile fashion. Using fluoroscopy, the skin overlying our target was anesthetized with 0.5% lidocaine. A 22 gauge 3.5 inch spinal needle was advanced to the safe triangle in the upper pole of the left L5 foramen. No paresthesias were elicited with needle placement and aspiration was negative for blood and CSF. Correct needle position was confirmed with approximately 1 ml contrast dye (Omnipaque 180 mg/ml) injected under real-time fluoroscopy. No evidence of vascular or intrathecal uptake was seen and there was both epidural and peripheral spread of the contrast agent. 10 mg dexamethasone plus 1 ml containing 0.5% lidocaine was slowly injected. The needle was flushed and removed. The skin was cleansed and a sterile bandages were applied. The patient tolerated the procedure well and no complications were encountered. Following the procedure the patient's vital signs were stable. The patient was discharged home in good condition with post-procedural instructions. Time Out: Immediately prior to the procedure, the following was verbally confirmed that there is a signed consent form and that the correct patient, planned procedure, site and side are consistent with documentation and that necessary equipment and/or blood products are available prior to the start of the case. Complications: none EBL: <5 cc 25369 - Lumbar/Sacral Procedure code (CPT) selection complete Assessment & Plan Assessment & Plan (1) Chronic radicular pain of lower back: Code(s): M54.16 - Radiculopathy, lumbar region; G89.29 - Other chronic pain Category: Medical Plan Patient is status post left L5 TFESI. Patient tolerated procedure well and was discharged home in stable condition with discharge instructions. All questions were answered. We will follow-up via telephone or in clinic to assess response to therapy. A follow-up appointment was made during today's visit. Orders: Orders FL guidance in treatment room Today Erlin Le MD G89.29 - Other chronic pain, M54.16 - Radiculopathy, lumbar region, M54.9 - Dorsalgia, unspecified, M79.609 - Pain in unspecified limb AMB Transforaminal Epidural Steroid Injection Today Erlin Le MD M54.16 - Radiculopathy, lumbar region Medications: New lorazepam Take one tablet 30 min prior to procedure 03/20/25 1 mg PO ONCE PRN 1 tab 0RF procedural anxiety 1 day LINDA Michel G89.29 - Other chronic pain, M54.16 - Radiculopathy, lumbar region Coding Level of Care Code Procedure Only Diagnoses Chronic radicular pain of lower back M54.16; G89.29 CPT Codes Transforaminal Epidural Steroid Inj - TESI 3: 87632 - Lumbar/Sacral ([id number])
[2025-03-20 10:53] VITALS: BP 141/101; PULSE 90; RESP 20; O2SAT 100
== END 2025-03-20 10:53 | disposition home or self-care (01) ==
LOC: HO.PMCPRC 10:25
PROVIDERS: PCP Nurse Practitioner Family; Visit Provider Internal Medicine
DX: M54.16 Radiculopathy, lumbar region (principal); G89.29 Other chronic pain
CPT/HCPCS: 64483

== ENCOUNTER 2025-03-20 15:07 | Outpatient (REF) | payer OTHER, SELFPAY ==
[2025-03-21 10:21] LABS: Appearance Urine Clear; Glucose Urine UA >=1000 mg/dL (Negative); PH 5.0 (5.0-9.0); Specific Gravity - Urine 1.025 (1.005-1.025); UMIC TRIGGER UACC YES
== END 2025-03-20 15:08 | disposition home or self-care (01) ==
LOC: HO.HMGCLNP 15:07
PROVIDERS: PCP Nurse Practitioner Family; Visit Provider Nurse Practitioner Family
DX: E11.9 Type 2 diabetes mellitus without complications (principal)
CPT/HCPCS: 81001

== ENCOUNTER 2025-03-25 09:54 | Outpatient (AMB) | payer OTHER, SELFPAY ==
--- NOTE | 2025-03-25 09:56 | A.OFFPC_ITS ---
Vital Signs 03/25/25 09:57 Height 5 ft 6 in Weight 221 lb BMI 35.7 BP 122/84 Blood Pressure Location Lt brachial Position Sitting Respiration 16 Pulse 74 Pulse Source Pulse Oximeter Pulse Oximetry (%) 98 Intake Visit Reasons: Annual PE & diabetic check up Naturopathic Oncology Provider Required: No Accompanied by: Self / Same As Patient Allergies No Known Allergies Allergy (Verified 03/25/25 09:57) Tobacco use date assessed: 03/25/25 Dental Screening Dental Screen Date: 03/25/25 Did you have a dental visit in the last 12 months?: Yes Did you have a dental problem in the last 6 months where you did not have access to dental care?: No Was dental information given to patient?: Patient has dentist HPI Annual PE & diabetic check up HPI Details History of Present Illness The patient is a 44-year-old male presenting with a physical exam and diabetes follow-up. He reports having blood in his stool over six months ago, lasting for about a week, accompanied by upper epigastric discomfort. These symptoms have since resolved, but he acknowledges the importance of undergoing a colonoscopy/endoscopy, especially at his age. He recently had laboratory tests showing slightly elevated liver enzymes. An ultrasound and hepatitis screen are planned to further investigate these findings. His diabetes management appears effective, with a recent A1c of 6.4%. His LDL cholesterol level is 54 mg/dL, and his microalbumin is up to date. He regularly attends eye exams, indicating adherence to diabetes care recommendations. Health Maintenance - Colon cancer screening recommended due to age and previous symptoms - Regular eye exams for diabetes managem ent Social History Review of Systems - Gastrointestinal: Reports blood in sto ol over six months ago, denies current symptoms - General: Denies fevers, chills - Neurological: Denies blurred vision, n europathy - Genitourinary: Denies urinary problems - Cardiovascular: Denies chest pain, jeff rtness of breath -denies any si or hi Physical Exam General: Cooperative, healthy appearing, comfortable, no acute distress and well developed Orientation: Patient oriented x3 Limitations: No limitations Head: Normal to inspection Ears: Hearing grossly normal bilaterally Nose: Normal external nose present Face and sinus: Normal facial exam Eyes: Appearance normal, both eyes and all related structures Neck: Normal visual inspection and Yes full ROM Respiratory: Normal respiratory effort and able to speak in complete sentences. Clear to auscultation bilaterally Cardiovascular: Regular rate and rhythm. Normal S1 and S2 GI: Normal to inspection. Soft to palpation and nontender : testicles without masses/lesions and no hernias appreciated Skin: No rashes or lesions noted Neuro: Patient oriented x3 Extremities: Normal to inspection, feet intact with positive sensation with use of monofilament to feet Results - Labs: A1c 6.4%, LDL 54 mg/dL, elevated liver enzymes Plan The patient will be advised to schedule a colonoscopy due to previous blood in stool and his age, which is a critical preventative measure for colon cancer. If he encounters any issues with scheduling, he should contact his GI provider or reach out for assistance. For the elevated liver enzymes, an ultrasound and hepatitis screen will be conducted to determine the underlying cause. Diabetes management will continue with regular monitoring of A1c levels, which are currently well-controlled at 6.4%. The patient is encouraged to maintain regular eye exams and continue monitoring his microalbumin levels. Discussion Notes I discussed with the patient the importance of scheduling a colonoscopy, especially given his age and previous symptoms of blood in stool. We also reviewed his recent lab results, noting the elevated liver enzymes, and planned further diagnostic testing with an ultrasound and hepatitis screen. I emphasized the need for continued diabetes management, highlighting his current A1c level and the importance of regular eye exams. Patient Instructions - Schedule a colonoscopy and contact you r GI provider if you encounter any issues. - Follow up with an ultrasound and hepat itis screen for elevated liver enzymes. - Continue regular monitoring of A1c lev els and attend eye exams. [facility] Medical History Hypertension Surgical History H/O elbow surgery S/P ACL repair History of surgery on lower extremity Hx of eye surgery Family History Father No problems noted. Mother No problems noted. 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 1. Little interest or pleasure in doing things: not at all 2. Feeling down, depressed, or hopeless: not at all 3. Trouble falling or staying asleep, or sleeping too much: not at all 4. Feeling tired or having little energy: not at all 5. Poor appetite or overeating: not at all 6. Feeling bad about yourself - or that you are a failure or have let yourself or your family down: not at all 7. Trouble concentrating on things, such as reading the newspaper or watching television: not at all 8. Moving or speaking so slowly that other people could have noticed. Or the opposite - being so fidgety or restless that you have been moving around a lot more than usual: not at all 9. Thoughts that you would be better off or of hurting yourself in some way: not at all Total score: 0 Depression Screening Interpretation: Negative Depression Screening Done: Yes 02121 - PHQ-9 Billing: Yes Source: Developed by Drs. Zeb Scott, Nikole Hope, Kin Pressley and colleagues, with an educational elsie from [employer]. Thrive Questionnaire Date Thrive assessed: 08/25/24 I am a: Patient What is your living situation today?: I have a steady place to live Within the past 12 months, did the food you bought not last and you didn't have the money to get more?: Never true Within the past 12 months, did you worry whether your food would run out before you got money to buy more?: Never true Do you have trouble paying for medicines?: No Do you have trouble getting transportation to medical appointments?: No Do you have trouble paying your heating and electricity bill?: No Do you have trouble taking care of your child, family member or friend?: No Do you have trouble with day-to-day activities such as bathing, preparing meals, shopping, managing finances, etc.?: No Are you currently unemployed and looking for a job?: No Are you interested in more education?: No Please select the resources that you would like help with: None Currently or been in a relationship where the following occur: No concerns reported THRIVE Score: 0 DIDIER-7 AMB Questionnaire DIDIER-7 Date DIDIER - 7 assessed: 09/17/24 Feeling nervous, anxious, or on edge: 0 = Not at all Not being able to stop or control worryin = Not at all Worrying too much about different things: 0 = Not at all Trouble relaxin = Not at all Being so restless that it is hard to sit still: 0 = Not at all Becoming easily annoyed or irritable: 0 = Not at all Feeling afraid as if something awful might happen: 0 = Not at all Total DIDIER-7 score (0-4 normal; 5-9 mild; 10-14 moderate; 15-21 severe): 0 Source: Developed by Drs. Zeb Scott, Nikole Hope, Kin Pressley and colleagues, with an educational elsie from [employer]. DIDIER-7 Assessment Billing DIDIER-7 Assessment Tool: DIDIER-7 Assessment 31211 Physical exam (Primary Care) Vital Signs: Last Vital Signs Pulse 74 03/25/25 09:57 Resp 16 03/25/25 09:57 BP 122/84 03/25/25 09:57 Pulse Ox 98 03/25/25 09:57 BMI result Body Mass Index 35.7 Tobacco/Smoking Status: Tobacco use Status Tobacco use date assessed 03/25/25 03/25/25 09:59 Patient Tobacco Use Status Former Tobacco user 03/25/25 09:59 e-Cigarette/Vaping Use Never Used 03/25/25 09:59 PHQ-9: PHQ-9 Score PHQ-9: Total score 0 03/25/25 09:59 Depression Screening Interpretation: Negative Thrive Assessment: Date of Thrive Assessment Date Thrive assessed 08/25/24 03/25/25 09:59 Currently or been in a relationship where the following occur: No concerns reported Coding Level of Care Code Est Pt Level 3 (39383) Est Pt Prev Care 40-64y(34777) Diagnoses Elevated liver enzymes R74.8 Diabetes E11.9 Encounter for routine adult physical exam with abnormal findings Z00.01 Additional Codes DIDIER-7 Assessment Billing - DIDIER-7 Assessment Tool: DIDIER-7 Assessment 58469 ([id number]) PHQ-9 - 02160 - PHQ-9 Billing: Yes ([id number]) Assessment & Plan Assessment & Plan (1) Elevated liver enzymes: Code(s): R74.8 - Abnormal levels of other serum enzymes Category: Medical (2) Diabetes: Code(s): E11.9 - Type 2 diabetes mellitus without complications Category: Medical (3) Encounter for routine adult physical exam with abnormal findings: Code(s): Z00.01 - Encounter for general adult medical examination with abnormal findings Category: Medical Plan . Orders: Orders Hepatitis A,B,C Profile Today R74.8 - Abnormal levels of other serum enzymes US abdomen complete Today R74.8 - Abnormal levels of other serum enzymes
[2025-03-25 09:57] VITALS: BP 122/84; PULSE 74; RESP 16; O2SAT 98; BMI 35.7
== END 2025-03-25 11:18 | disposition home or self-care (01) ==
LOC: HO.HMCC 09:55
PROVIDERS: PCP Nurse Practitioner Family; Visit Provider Nurse Practitioner Family
DX: Z00.01 Encounter for general adult medical examination with abnormal findings (principal); R74.8 Abnormal levels of other serum enzymes; E11.9 Type 2 diabetes mellitus without complications

== ENCOUNTER → 2025-03-25 09:54 | Outpatient (BNVA) | payer OTHER, SELFPAY | PROVIDERS: PCP Nurse Practitioner Family; Visit Provider Nurse Practitioner Family | DX: Z00.01 Encounter for general adult medical examination with abnormal findings (principal); E11.9 Type 2 diabetes mellitus without complications; R74.8 Abnormal levels of other serum enzymes | CPT/HCPCS: 96127 ==

== ENCOUNTER 2025-03-31 17:46 | Outpatient (REF) | payer OTHER, SELFPAY ==
--- NOTE | ~2025-03-31 | MR_ITS ---
CLINICAL HISTORY: M25.311 - Other instability, right shoulder MR of the right shoulder without contrast. No prior MR. Findings: There is a full-thickness tear of the distal supraspinatus tendon measuring 10 x 7 mm. There is associated supraspinatus tendinopathy. There is mild infraspinatus tendinopathy. The teres minor tendon is intact. There is mild subscapularis tendinopathy. There is a tear of the superior labrum likely extending to the intra-articular biceps tendon. There is a large paralabral cyst adjacent to the posterior superior glenoid measuring a maximum 2 cm. There is a possible old mild Hill-Sachs lesion of the humeral head. There is mild irregularity of the inferior glenoid suggestive of prior trauma. There is a small tear of the anterior inferior labrum. There are findings consistent with an old grade 3 acromioclavicular separation. There is mild malalignment of the acromioclavicular joint with a possible old distal clavicular fracture. There are moderate to advanced acromioclavicular degenerative changes. Impression: Small full-thickness tear distal supraspinatus tendon with associated tendinopathy. Mild infraspinatus and subscapularis tendinopathy. Probable type IV SLAP tear. Possible old mild Hill-Sachs lesion and prior trauma of the inferior glenoid with a small tear of the anterior inferior labrum. Old grade 3 acromioclavicular separation with moderate to advanced acromioclavicular DJD. This document has been electronically signed by: Phil Vázquez MD on 04/02/2025 19:57:14
== END 2025-03-31 17:47 | disposition home or self-care (01) ==
LOC: HO.MRI 17:46
PROVIDERS: PCP Nurse Practitioner Family; Visit Provider Orthopaedic Surgery
DX: M25.311 Other instability, right shoulder (principal)
CPT/HCPCS: 73221

== ENCOUNTER → 2025-03-31 17:47 | Outpatient (BNV) | payer OTHER, SELFPAY | PROVIDERS: PCP Nurse Practitioner Family; Visit Provider Radiology Diagnostic Radiology | DX: M75.111 Incomplete rotator cuff tear or rupture of right shoulder, not specified as traumatic (principal) | CPT/HCPCS: 73221 ==

== ENCOUNTER 2025-04-22 10:12 | Outpatient (AMB) | payer OTHER, SELFPAY ==
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
[2025-04-22 10:22] VITALS: BMI 35.7
== END 2025-04-22 10:55 | disposition home or self-care (01) ==
LOC: HO.HOS 10:13
PROVIDERS: PCP Nurse Practitioner Family; Visit Provider Orthopaedic Surgery
DX: M25.311 Other instability, right shoulder (principal)
CPT/HCPCS: 99214; G2211

== ENCOUNTER 2025-05-12 08:50 | Outpatient (REF) | payer OTHER, SELFPAY ==
--- NOTE | ~2025-05-12 | US_ITS ---
CLINICAL HISTORY: R74.8 - Abnormal levels of other serum enzymes US abdomen complete Comparison: None provided Findings: The visualized pancreas head and body are normal. Remainder pancreas is obscured by bowel gas. The visualized aorta and inferior vena cava are normal caliber. The liver is normal in size, right lobe length is 16.8 cm. Diffuse steatosis with small area of focal fatty sparing near gallbladder fossa, no suspicious hepatic lesion is seen. No intrahepatic bile duct dilatation. The common duct is 3 mm in diameter. The gallbladder is normal. Negative sonographic Valera sign. The main portal vein is patent with antegrade flow. The right kidney is normal, 11.3 cm in length. The left kidney demonstrates simple exophytic cyst of the lower pole 1.6 cm, otherwise normal, 11.1 cm in length. The spleen is normal, 11.6 cm in length. No free fluid in the abdomen. Impression: 1. Hepatic steatosis. 2. Left renal benign cyst. This document has been electronically signed by: Karoline Lopez MD on 05/12/2025 16:43:38
== END 2025-05-12 08:51 | disposition home or self-care (01) ==
LOC: HO.HMGCX 08:50
PROVIDERS: PCP Nurse Practitioner Family; Visit Provider Nurse Practitioner Family
DX: R74.8 Abnormal levels of other serum enzymes (principal)
CPT/HCPCS: 76700

== ENCOUNTER → 2025-05-12 08:52 | Outpatient (BNV) | payer OTHER, SELFPAY | PROVIDERS: PCP Nurse Practitioner Family; Visit Provider Radiology Diagnostic Radiology | DX: K76.0 Fatty (change of) liver, not elsewhere classified (principal); N28.1 Cyst of kidney, acquired | CPT/HCPCS: 76700 ==

== ENCOUNTER 2025-06-13 09:28 | Outpatient (AMB) | payer OTHER, SELFPAY ==
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
[2025-06-13 09:38] VITALS: BP 110/82; PULSE 80; RESP 16; O2SAT 98; BMI 37.0
== END 2025-06-13 10:13 | disposition home or self-care (01) ==
LOC: HO.PMC 09:29
PROVIDERS: PCP Nurse Practitioner Family; Visit Provider Internal Medicine
DX: M25.552 Pain in left hip (principal); M25.311 Other instability, right shoulder; M25.559 Pain in unspecified hip
CPT/HCPCS: 99213

== ENCOUNTER 2025-06-20 09:14 | Day surgery (SDC) | payer OTHER, SELFPAY ==
[2025-06-06 13:13] VITALS: BP 128/89; PULSE 90; RESP 16; O2SAT 97; BMI 36.6
[2025-06-20] VITALS (10 sets, daily range): BP systolic 142–169; BP diastolic 81–98; PULSE 91–101; RESP 13–20; TEMP 36.2–36.4; O2SAT 95–97; BMI 35.0
[2025-06-20 09:39] LABS: Glucose, Whole Blood 91 mg/dL (60-115)
[2025-06-20] MEDS: Lactated Ringers 1,000 ML 100 ML IVCONT (09:43)
--- NOTE | 2025-06-20 09:45 | HO.ANESPROP2 ---
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 HTN well controlled DM2: FBS ~ 90's, A1C 6.7 Anesthesia Pre-Procedure Meds Is the patient on any of the following meds?: SGLT2 Inhib PMFSH Active Problems Active Problems: All Active Problems Encounter for routine adult physical exam with abnormal findings (Acute) Elevated liver enzymes (Acute) Rotator cuff insufficiency of right shoulder (Acute) Shoulder pain, right (Acute) Chronic radicular pain of lower back (Acute) Screening for prostate cancer (Acute) Pain of back and lower extremity (Acute) Screening for colon cancer (Acute) Diabetes (Acute) Exudative pharyngitis (Acute) Upper respiratory tract infection (Acute) Past Medical History Medical History (Updated 06/13/25 @ 10:01 by Erlin Le MD) Diabetes Arthritis Elevated cholesterol Fatty liver Renal cyst, left Hypertension Family History Family History Father No problems noted. Mother No problems noted. Family history of problems with anesthesia: No (Dad wakes slow) Surgical History Surgical History (Updated 06/06/25 @ 13:08 by Alma Delia Porter RN) History of bilateral cataract extraction Hx of surgical procedure Hx of right knee surgery S/P ACL repair History of surgery on lower extremity (~2012) Hx of eye surgery History of Problems with Anesthesia: No Social History Social History Housing: House Are you a primary day care center director to a significant other at home: No Do you presently have visiting nurse or other home services: No Alcohol intake: current Alcohol intake frequency: 3 or more drinks per day Alcohol type: beer Patient Tobacco Use Status: Former Tobacco user e-Cigarette/Vaping Use: Never Used Use of substances other than those prescribed or required for medical reasons: Yes Substance Use Frequency: Weekly Have you been hit, kicked, punched, or otherwise hurt by someone within the past year? 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 - [employer] Current occupational exposures/hazards: No Cognitive needs: No Hearing needs: No Vision needs: Yes Meds Allergies Allergy/AdvReac Type Severity Reaction Status Date / Time No Known Allergies Allergy Verified 06/13/25 09:39 Home Medications ?Medication ?Instructions ?Recorded ?Confirmed ?Last Taken ?Type lancets 28 gauge (FreeStyle #100 ea 08/31/22 04/22/25 Unknown History Lancets) acetaminophen 500 mg capsule 1,000 mg PO Q6H PRN Pain 06/06/25 06/13/25 Unknown History diclofenac sodium 75 mg 75 mg PO DAILY PRN pain 06/06/25 06/13/25 06/14/25 History tablet,delayed release glipizide 5 mg tablet 5 mg PO QPM 06/06/25 06/13/25 Unknown History Exam Height,Weight and Vital Signs: Height 5 ft 6 in Weight 102.965 kg Last Vital Signs Pulse 90 06/06/25 13:13 Resp 16 06/06/25 13:13 BP 128/89 06/06/25 13:13 Pulse Ox 97 06/06/25 13:13 O2 Del Method Room Air 06/06/25 13:13 Pertinent Lab Results Pertinent Lab Results: Laboratory Tests 03/20/25 06:26 WBC 6.2 Hgb 14.8 Hct 43.5 Plt Count 245 Sodium 139 Potassium 4.6 Chloride 104 Carbon Dioxide 25 Anion Gap 15 BUN 14 Creatinine 0.80 Hemoglobin A1c % 6.4 H Total Protein 7.9 Albumin 4.9 Airway Mallampati Class: II TM Dist: >3cm Neck ROM: Full Heart: RRR Lungs: CTAB Assessment and Plan Assessment Anesthesia Assessment: Anesthesia Plan Discussed and PAT Visit Final Anesthetic Review Family History of Problems with Anesthesia: No (Dad wakes slow) History of Problems with Anesthesia: No Documented by User: Susannah Jnoes DO 06/20/25 10:57 HPI - Anesthesia Eval Anesthesia Pre-Procedure Meds Is the patient on any of the following meds?: SGLT2 Inhib PMFSH Past Medical History Medical History (Updated 06/13/25 @ 10:01 by Erlin Le MD) Diabetes Arthritis Elevated cholesterol Fatty liver Renal cyst, left Hypertension Family History Family History Father No problems noted. Mother No problems noted. Family history of problems with anesthesia: No Surgical History Surgical History (Updated 06/06/25 @ 13:08 by Alma Delia Porter RN) History of bilateral cataract extraction Hx of surgical procedure Hx of right knee surgery S/P ACL repair History of surgery on lower extremity (~2012) Hx of eye surgery History of Problems with Anesthesia: No Social History Social History Housing: House Are you a primary day care center director to a significant other at home: No Do you presently have visiting nurse or other home services: No Alcohol intake: current Alcohol intake frequency: 3 or more drinks per day Alcohol type: beer Patient Tobacco Use Status: Former Tobacco user e-Cigarette/Vaping Use: Never Used Use of substances other than those prescribed or required for medical reasons: Yes Substance Use Frequency: Weekly Have you been hit, kicked, punched, or otherwise hurt by someone within the past year? 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 - [employer] Current occupational exposures/hazards: No Cognitive needs: No Hearing needs: No Vision needs: Yes Meds Allergies Allergy/AdvReac Type Severity Reaction Status Date / Time No Known Allergies Allergy Verified 06/13/25 09:39 Home Medications ?Medication ?Instructions ?Recorded ?Confirmed ?Last Taken ?Type lancets 28 gauge (FreeStyle #100 ea 08/31/22 04/22/25 Unknown History Lancets) acetaminophen 500 mg capsule 1,000 mg PO Q6H PRN Pain 06/06/25 06/13/25 Unknown History diclofenac sodium 75 mg 75 mg PO DAILY PRN pain 06/06/25 06/13/25 06/14/25 History tablet,delayed release glipizide 5 mg tablet 5 mg PO QPM 06/06/25 06/13/25 Unknown History Exam Exam Date and Time: 06/20/25 0945 Height,Weight and Vital Signs: Vital Signs Pulse Rate 90 06/06/25 13:13 Respiratory Rate 16 06/06/25 13:13 Blood Pressure 128/89 06/06/25 13:13 Pulse Oximetry 97 06/06/25 13:13 Oxygen Delivery Method Room Air 06/06/25 13:13 Temperature 97.6 F 06/20/25 09:22 Pulse Rate 91 06/20/25 09:22 Respiratory Rate 20 06/20/25 09:22 Blood Pressure 169/83 H 06/20/25 09:22 Pulse Oximetry 96 06/20/25 09:22 Oxygen Delivery Method Room Air 06/20/25 09:22 Height 5 ft 6 in Weight 102.965 kg Last Vital Signs Pulse 90 06/06/25 13:13 Resp 16 06/06/25 13:13 BP 128/89 06/06/25 13:13 Pulse Ox 97 06/06/25 13:13 O2 Del Method Room Air 06/06/25 13:13 Airway Mallampati Class: I TM Dist: >3cm Neck ROM: Full Loose/Missing/Broken Teeth: Yes (missing a few molars) Heart: S1S2 Assessment and Plan Assessment Anesthesia Assessment: Anesthesia Plan Discussed and Chart Reviewed Final Anesthetic Review Family History of Problems with Anesthesia: No History of Problems with Anesthesia: No NPO: Yes ASA Class: II Final Preanesthetic Review: No Changes in Pt Med Stat, Meds/Allgs Chart Reviewed, Consent Obtained/Reviewed and Anes Risks/Benef Reviewed Patient Risk: Low Procedure Risk: Intermediate Anesthetic Plan Anesthetic Plan: GA, Regional Block (right brachial plexus block) and Agree w/ Assess. and Plan Disposition: Standard PACU
--- NOTE | 2025-06-20 12:25 | P.BOP_ITS ---
Brief Operative Note Date of Service: 06/20/25 Pre-op diagnosis: Right shoulder impingement syndrome, right shoulder acromioclavicular joint arthritis, right shoulder rotator cuff tear Post-op diagnosis: same Procedure: Right shoulder arthroscopic distal clavicle excision, right shoulder arthroscopic acromioplasty, right shoulder mini open rotator cuff repair Implants: 1 suture anchor (Bermeo and Nephew Twinfix anchor with #2 Ultrabraid suture) Surgeon: Aaron Peña MD Anesthesia: GETA and regional Was an Upper Doubler used for this Procedure?: No Estimated blood loss (mL): 20 Pathology: none sent Condition: stable Disposition: PACU
--- NOTE | 2025-06-20 12:26 | P.OP_ITS ---
Operative Note Operative Note Date of Service: 06/20/25 Narrative: After the patient was identified as Lance Almendarez and his right shoulder was initialed by myself the patient was brought to the holding area where a right shoulder interscalene regional block was performed by the anesthesiologist in routine fashion. The patient was then brought to the operating room where general anesthesia was induced by the anesthesiologist in routine fashion. The patient was given 2 g of IV Ancef preoperatively for infection prophylaxis. Examination under anesthesia of the patient's right shoulder showed full passive range of motion of the patient's right shoulder when compared to the left. The patient was gently positioned in the beach chair position with all bony prominences well padded. The patient's right shoulder region and upper extremity were prepped and draped in sterile fashion. A formal time-out was completed. A #11 scalpel blade was used to make a posterior portal 2 cm inferior and 1 cm medial to the posterolateral corner of the acromion. Blunt trocar technique was used to enter the glenohumeral joint in routine fashion. An anterior portal was made just lateral to the coracoid process after proper positioning was confirmed using a spinal needle. Diagnostic arthroscopy showed minimal degenerative changes of the glenoid and humeral head articular surfaces. There was a full-thickness tear of the supraspinatus tendon. There was no evidence of injury to the biceps tendon or its insertion onto the glenoid. There was no inflammation of the anterior joint capsule. The arthroscope was then placed from the posterior portal into the subacromial space. A lateral portal was made 2 fingerbreadths lateral to the anterior lateral corner of the acromion. The ArthroCare Wand was used to ablate soft tissues along the undersurface of the acromion as well as to excise the coracoacromial ligament. There was a sharp spur along the undersurface of the acromion which was removed using the hooded bur. The arthroscope was then placed into the lateral portal and the acromioplasty was completed with the bur in the posterior portal using the posterior aspect of the acromion as a cutting block. The ArthroCare Wand was then brought in through the anterior portal and was used to ablate soft tissues along the acromioclavicular joint and distal clavicle. The posterior and superior ligamentous structures were left intact. A distal clavicle excision of 8 mm was performed using the hooded bur. Any remaining bursal tissue was removed using the arthroscopic shaver. The subacromial space was irrigated and then drained. All arthroscopic instruments were removed. Sterile gloves were changed and the shoulder was once again prepped with Betadine. A #15 scalpel blade was used to extend the lateral portal to the lateral edge of the acromion. The subacromial tissues were dissected using electrocautery down to the superficial deltoid fascia. The trocar split in the anterior raphe of the deltoid was then extended to the lateral edge of the acromion using yamilet ctrocautery and curved Urbina scissors. Any remaining bursal tissue was removed using curved Urbina scissors. Subacromial and subdeltoid adhesions were bluntly dissected. The undersurface of the acromion was palpated and it was smooth. A #2 Ethibond tag suture was placed into the supraspinatus tendon. The tendon was easily mobilized to its insertion point on the glenoid. The wound was irrigated with copious amounts of normal saline solution. One suture anchor was placed into the greater tuberosity in routine fashion. The rotator cuff repair was then performed using horizontal mattress sutures under minimal tension with the patient's elbow at their side. Following the repair the shoulder was taken through a full range of motion. The repair was stable. The wound was irrigated with copious amounts of normal saline solution. The superficial and deep deltoid fascia were closed with #1 Vicryl [id number] interrupted suture. The wound was once again irrigated. The subcutaneous tissues were closed with 2-0 Vicryl interrupted suture. The skin was closed with 3-0 Prolene subcuticular suture and Steri-Strips. The anterior and posterior portals were closed with 3-0 nylon interrupted suture. Dry sterile dressing was placed over all incisions. The patient's right upper extremity was placed into a sling. The patient was awoken and extubated in the operating room. The patient was transferred to the recovery room in stable condition.
== END 2025-06-20 14:19 | disposition home or self-care (01) ==
PROVIDERS: PCP Nurse Practitioner Family; Visit Provider Orthopaedic Surgery
PROC: (CPT 23412; principal; 2025-06-20 11:30)
DX: M75.101 Unspecified rotator cuff tear or rupture of right shoulder, not specified as traumatic (principal); M75.41 Impingement syndrome of right shoulder; M19.011 Primary osteoarthritis, right shoulder; M25.511 Pain in right shoulder; M25.311 Other instability, right shoulder; I10 Essential (primary) hypertension; E78.00 Pure hypercholesterolemia, unspecified; E11.9 Type 2 diabetes mellitus without complications; K76.0 Fatty (change of) liver, not elsewhere classified; Z79.84 Long term (current) use of oral hypoglycemic drugs; Z79.899 Other long term (current) drug therapy; Z98.890 Other specified postprocedural states; Z87.891 Personal history of nicotine dependence
CPT/HCPCS: 23412; 29824; 29826; 82947; C1713; J0131; J0165; J0690; J0696; J1100; J1630; J2003; J2250; J2405; J2704; J2795; J3010

== ENCOUNTER → 2025-06-20 09:14 | Outpatient (BNV) | payer OTHER, SELFPAY | PROVIDERS: PCP Nurse Practitioner Family; Visit Provider Orthopaedic Surgery | DX: S46.011A Strain of muscle(s) and tendon(s) of the rotator cuff of right shoulder, initial encounter (principal); M75.41 Impingement syndrome of right shoulder; M19.011 Primary osteoarthritis, right shoulder | CPT/HCPCS: 23412; 29824 ==

== ENCOUNTER 2025-07-03 11:38 | Outpatient (AMB) | payer OTHER, SELFPAY ==
--- NOTE | 2025-07-03 11:45 | MHC.OFFVIS ---
Intake Visit Reasons: Right shoulder pain Intake Note: Lance is a 45 year old male who presents with complaints of mild to moderate discomfort in his right shoulder after undergoing right shoulder rotator cuff repair surgery on 06/20/2025. He has been resting his shoulder as per my instructions. He denies any fevers or chills. He is no longer taking narcotics for his discomfort. Allergies No Known Allergies Allergy (Verified 07/03/25 11:47) Medication List - Last Reconciled 07/03/25 by Aaron Peña MD acetaminophen 1,000 mg PO Q6H PRN atorvastatin 20 mg PO DAILY diclofenac sodium 75 mg PO DAILY PRN glipizide 5 mg PO QPM Jardiance (empagliflozin) 25 mg PO DAILY NS lancets (FreeStyle Lancets) As directed lisinopril 10 mg PO DAILY oxycodone 10 mg (2 x 5 mg) PO Q4H PRN PFSH Medical History (Updated 06/13/25 @ 10:01 by Erlin Le MD) Diabetes Arthritis Elevated cholesterol Fatty liver Renal cyst, left Hypertension Surgical History History of bilateral cataract extraction Hx of surgical procedure Hx of right knee surgery S/P ACL repair History of surgery on lower extremity (~2012) Hx of eye surgery Family History Father No problems noted. Mother No problems noted. 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 Almendarez is doing very well after undergoing right shoulder rotator cuff repair surgery on 06/20/2025. His sutures were removed and Steri-Strips placed over his incisions. I did give him a prescription to go to formal physical therapy for passive range motion exercises only. I will hold off on active lifting until he is 8 weeks out from surgery. I will see him back at that time. Feel free to call me at any time should questions regarding his orthopedic management arise. Orders: Orders PT Evaluation and Treatment 07/04/25 M25.311 - Other instability, right shoulder Coding Level of Care Code Global (23220) Diagnoses Acute pain of right shoulder M25.511 Chronicity: acute
== END 2025-07-03 12:00 | disposition home or self-care (01) ==
LOC: HO.HOS 11:39
PROVIDERS: PCP Nurse Practitioner Family; Visit Provider Orthopaedic Surgery
DX: M25.511 Pain in right shoulder (principal)
CPT/HCPCS: 99024

== ENCOUNTER 2025-07-16 13:17 | Outpatient (AMB) | payer OTHER, SELFPAY ==
--- NOTE | 2025-07-16 13:29 | A.OFFVIS_ITS ---
Vital Signs 07/16/25 13:30 Height 5 ft 6 in Weight 223 lb BMI 36.0 BP 124/82 Blood Pressure Location Rt brachial Position Sitting Pulse 96 Pulse Source Pulse Oximeter Pulse Oximetry (%) 96 Oxygen Delivery Method Room Air Intake Visit Reasons: Initial colo screening. Booked through portal Intake Note: New pt for initial colo screening. CC; C/O LLQ pain, intermittent constipation and diarrhea, as well as BRB per rectum. Pt was referred to GI for these concerns as well as initial colo screening w/o pertinent surgical or FMHx. Family Sociologist Required: No Accompanied by: Daughter Allergies No Known Allergies Allergy (Verified 07/16/25 13:33) HPI HPI Initial colo screening. Booked through portal: Details: 45 year old? male with past medical history of hyperlipidemia, diabetes, hypertension is here today for pre colonoscopy screening.? Patient was sent to us by his PCP.? This is his first colonoscopy screening.? Patient denies any gastrointestinal symptoms in the past or at present.? However patient does admit to have occasional postprandial loose stools, occasional diarrhea. Symptoms happened maybe once or twice a month. Denies any family history of CRC.? Denies history of difficulty with sedation or anesthesia in the past.? Negative for history of sleep apnea.? Denies any history of cardiac, renal, pulmonary, or hepatic disease.?? No history of infectious? diseases like hepatitis A, B, C, HIV or tuberculosis.? Patient is not on any anticoagulation. Patient reports that 20 he had an accident when he fell off the porch on 2 freshly cut shrub. Patient reports that he had multiple cuts on his legs and near his rectum. Patient reports that he has no complications, no perforation [facility] Medical History Diabetes Arthritis Elevated cholesterol Fatty liver Renal cyst, left Hypertension Surgical History History of bilateral cataract extraction Hx of surgical procedure Hx of right knee surgery S/P ACL repair History of surgery on lower extremity (~2012) Hx of eye surgery Family History Father No problems noted. Mother No problems noted. Social History Housing: House Are you a primary care aide to a significant other at home: No Do you presently have visiting nurse or other home services: No Alcohol intake: current Alcohol intake frequency: 3 or more drinks per day Alcohol type: beer Patient Tobacco Use Status: Former Tobacco user e-Cigarette/Vaping Use: Never Used service: No Current occupational status: employed Current occupation: [employer] Current occupational exposures/hazards: No Cognitive needs: No Hearing needs: No Vision needs: Yes Review of Systems Const Denies weight gain and Denies weight loss ENT Reports no additional complaints, Denies dysphagia and Denies odynophagia Card Reports no additional complaints Resp Reports no additional complaints GI Denies abdominal pain, Denies belching, Denies melena, Denies bloating, Denies change in bowel habits, Denies dysphagia, Denies excessive flatus, Denies dyspepsia, Denies heartburn, Denies diarrhea, Denies loose stools, Denies nausea, Denies odynophagia and Denies vomiting Reports no additional complaints Musc Reports no additional complaints Neuro Reports no additional complaints Psych Reports no additional complaints Endo Reports no additional complaints Physical Exam Const General: healthy appearing, no acute distress and well developed Nutritional Appearance: well nourished Orientation/consciousness: patient oriented x3 Resp Effort & Inspection: normal respiratory effort, able to speak in complete sentences, no tracheal deviation and symmetric chest movement Auscultation: clear to auscultation bilaterally Cardio Rate: regular rate GI Inspection: Yes normal to inspection and No distended Palpation (GI): Soft to palpation, not firm, nontender and No hepatosplenomegaly present Auscultation: normal bowel sounds General: Yes no CVA tenderness Back/Spine/Pelvis Back: no CVA tenderness Skin General skin exam: elasticity normal, turgor normal and dry skin Neuro General: patient oriented x3 Psych Appearance: grossly normal Mental Status: mental status grossly normal Assessment & Plan Assessment & Plan (1) Screening for colon cancer: Code(s): Z12.11 - Encounter for screening for malignant neoplasm of colon Category: Medical (2) Elevated liver enzymes: Code(s): R74.8 - Abnormal levels of other serum enzymes Category: Medical Plan Patient denies any GI, cardiac or respiratory symptoms.? Denies any issues with anesthesia in the past.? Denies any history of sleep apnea.? No history infectious diseases in the past or present.? Not on any anticoagulation therapy.? No family history of colon cancer.? Patient denies melena, hematochezia, unintentional weight loss or ribbon like stools.? Discussed at length the pre-procedure,? prep, diet & medications as well as what to expect prior, during and after the procedure.?? Stressed the importance of good bowel p rep.? Recommended the use of Vaseline or Calmoseptine OTC & baby wipes with bowel movements to promote comfort.? ?Patient verbalizes understanding and agrees to plan of care.? He was given the opportunity to ask questions and all questions answered.? We will see him after the procedure.? Orders: Referrals GI Procedure Notification Z12.11 - Encounter for screening for malignant neoplasm of colon Medications: New bisacodyl (Dulcolax (bisacodyl)) take 4 tabs at noon the day before your colonoscopy 20 mg (4 x 5 mg) PO ONCE 4 tabs 0RF constipation 1 day Z12.11 - Encounter for screening for malignant neoplasm of colon polyethylene glycol 3350 (Miralax) As directed by gastroenterology department at [facility] 238 grams PO ONCE 238 grams 0RF Z12.11 - Encounter for screening for malignant neoplasm of colon Coding Level of Care Code New Pt Level 3 (02921) Diagnoses Screening for colon cancer Z12.11 Elevated liver enzymes R74.8 Time Spent (min) 40 Comment 30 minutes spent with patient and additional 10 minutes spent reviewing his records
[2025-07-16 13:30] VITALS: BP 124/82; PULSE 96; O2SAT 96; BMI 36.0
== END 2025-07-16 13:53 | disposition home or self-care (01) ==
LOC: HO.HGI 13:18
PROVIDERS: PCP Nurse Practitioner Family; Visit Provider Nurse Practitioner Family
DX: Z01.818 Encounter for other preprocedural examination (principal); Z12.11 Encounter for screening for malignant neoplasm of colon; R74.01 Elevation of levels of liver transaminase levels
CPT/HCPCS: 99203